=== PATIENT | female | born 1960 | race Caucasian/White ===

== ENCOUNTER 2020-01-02 08:41 | Outpatient (CLI) | payer BC, SELFPAY ==
--- NOTE | ~2020-01-02 | CT_ITS ---
EXAMINATION: CT chest wo con EXAM DATE: 01/02/2020 09:15 INDICATION: Cough. Airspace disease on recent chest x-ray. TECHNIQUE: Spiral CT of the chest without contrast. Axial, coronal and sagittal images were reviewe d. Coronal maximum intensity pixel images of chest reviewed. The dose-length product (DLP) for this examination was 141.06 mGy-cm. The exposure was tailored according to patient size (auto mA exposur e control), and iterative reconstruction (ASIR) was used as additional dose reduction technique. Comp arison is made to prior examination from 11/26/2016. Correlation was made with chest x-ray 12/16/2019. FINDINGS: There is large amount of airspace disease in the right lower lobe, causing some mass effec t, bulging the fissure, with multiple regions of low density consistent with necrosis. This is most l ikely necrotic pneumonia with significant interval progression compared to chest x-ray several weeks ago. Right lung base tree-in-bud pattern airspace disease, endobronchial spread of infection with ass ociated bronchial wall thickening, bronchitis. Smaller amount of right upper lobe pneumonia. There is biapical scarring. Moderate emphysema. Severe hyperinflation. Trace pericardial effusion. N o pleural effusions. Tracheobronchial tree is patent. Possible reactive right hilar lymphadenopath y. There is no pneumothorax. Heart normal in size. No evidence of coronary arterial calcificatio n. Upper abdomen is unremarkable. There is mild thoracic spondylosis without osteoblastic or osteo lytic lesions identified. IMPRESSION: 1. Large amount of lower lobe superior segmental centered necrotic airspace disease, most likely pne umonia but underlying cancer not excludable. Significant progression compared to chest x-ray last tue. 2. Moderate emphysema. 3. Severe hyperinflation. Reviewed, dictated and finalized at location A. RIBUTION WAREHOUSE MANAGER IMPRESSION: 1. Large amount of lower lobe superior segmental centered necrotic airspace di sease, most likely pneumonia but underlying cancer not excludable. Significant progression compared to chest x-ray last month. 2. Moderate emphysema. 3. Severe hyperinflation.
== END 2020-01-02 08:42 | disposition home or self-care (01) ==
PROVIDERS: PCP Internal Medicine; Visit Provider Physician Assistant
DX: R91.8 Other nonspecific abnormal finding of lung field (principal); J43.9 Emphysema, unspecified
CPT/HCPCS: 71250

== ENCOUNTER 2020-01-04 08:03 | Inpatient (IN) | payer BC, SELFPAY ==
[2020-01-04] VITALS (14 sets, daily range): BP systolic 101–122; BP diastolic 46–71; PULSE 98–148; RESP 16–20; TEMP 35.7–37.1; O2SAT 95–100; BMI 15.7
--- NOTE | ~2020-01-04 | XR_ITS ---
EXAMINATION: XR chest 2V DATE: 01/10/2020 10:34 INDICATION: Pneumonia. TECHNIQUE: Frontal and lateral views of the chest were obtained. COMPARISON: Chest 2 views 01/07/2020, chest CT 01/02/2020 FINDINGS: The lungs are hyperexpanded with lucencies, consistent with emphysema. There is symmetric s carring at the lung apices. There are patchy airspace opacities in the mid and lower lung zones, righ t worse than left. There is cavitation in right lower lobe with air/fluid level. There are small pleu ral effusions. No pneumothorax. The heart size is normal. IMPRESSION: 1. Airspace opacities in the mid and lower lung zones, right worse than left with worsened cavitation on the right, consistent with necrotizing pneumonia. 2. Worsened small pleural effusions. 3. Emphysema. Reviewed, dictated and finalized at location A. LEDGE MANAGEMENT CONSULTANT IMPRESSION: 1. Airspace opacities in the mid and lower lung zones, right worse than left wi th worsened cavitation on the right, consistent with necrotizing pneumonia. 2. Worsened small pleural effusions. 3. Emphysema.
--- NOTE | ~2020-01-04 | XR_ITS ---
EXAMINATION: XR barium swallow modified DATE: 01/10/2020 14:23 INDICATION: Dysphagia. Pneumonia. TECHNIQUE: The patient was given barium-containing material of multiple consistencies to swallow by t avtar speech pathologist while I performed fluoroscopy. Fluoroscopy exposure time was 2.2 minutes. The n umber of fluoroscopy images saved to the PACS was 1. Dose-area product was 1.18 Gy-cm^2. FINDINGS: The oral stage was within normal limits. There was vallecular residue contributing to laryngeal penet ration and silent aspiration. There was minimal residue in the prolonged sinus and at the pharyngeal wall. Esophageal stage was within normal limits. IMPRESSION: 1. Laryngeal penetration and silent aspiration. 2. Please refer to the speech therapy report for recommendations. Reviewed, dictated and finalized at location A. RVISOR QUILTING
--- NOTE | ~2020-01-04 | XR_ITS ---
EXAMINATION: XR chest 2V DATE: 01/07/2020 09:23 INDICATION: Pneumonia. Shortness of breath. TECHNIQUE: Frontal and lateral views of the chest were obtained. COMPARISON: Chest single view 01/04/2020 FINDINGS: There are lucencies in the lungs, consistent with emphysema. There is symmetric scarring at the lung apices. There are extensive airspace opacities in right mid and lower lung zones and left l ower lung zone with cavitation in right midlung zone. There are small pleural effusions. No pneumotho rax. The heart size is normal. IMPRESSION: 1. Worsened airspace opacities in right mid and lower lung zones and left lower lung zone with cavita tion in right midlung zone, consistent with necrotizing pneumonia. 2. New small pleural effusions. 3. Emphysema. Reviewed, dictated and finalized at location A. SWARE MAKER IMPRESSION: 1. Worsened airspace opacities in right mid and lower lung zones and left lower lung zone with cavitation in right midlung zone, consistent with necrotizing p neumonia. 2. New small pleural effusions. 3. Emphysema.
--- NOTE | ~2020-01-04 | XR_ITS ---
EXAMINATION: XR chest 1V portable DATE: 01/04/2020 09:11 INDICATION: Cough. Shortness of breath. TECHNIQUE: A single frontal view of the chest was obtained on 2 radiographs. COMPARISON: Chest 2 views 12/16/2019, chest CT 01/02/2020 FINDINGS: The lungs are hyperexpanded with lucencies and architectural distortion, consistent with em physema. There is symmetric scarring at the lung apices. There are extensive airspace opacities and n odules in right lung, worst in right lower lobe, consistent with pneumonia. No pleural effusion or pn eumothorax. The heart size is normal. IMPRESSION: 1. Severe pneumonia in right lung, worsened from 12/16/2019. 2. Emphysema. 3. Scarring at the lung apices. Reviewed, dictated and finalized at location A. NERY OPERATOR LIGHT ENDS RECOVERY
--- NOTE | 2020-01-04 08:27 | ED.DIZZY ---
HPI - Dizziness General Chief Complaint: Syncope Stated Complaint: syncope x2 today Time Seen by Provider: 01/04/20 08:18 Source: patient Mode of arrival: ambulatory Limitations: no limitations History of Present Illness HPI Narrative: Pt is a 59 y/o female who presents to the ED with c/o multiple syncopal episodes accompanied by dizziness. Per nurse, pt had multiple syncopal episodes at home and has been feeling weak. She was seen in the on 12/16/19 and was Dx with pneumonia and was Rx Levaquin. She has been following up with her PCP, Dr. Major. She reports cough with phlegm, fever, N/V for the last 3 weeks. She denies CP. MD elicited complaint: dizziness and other (syncope) Onset (ago): day(s) (today) Timing: sudden onset Associated symptoms: nausea, vomiting, fever, weakness and other (cough) Related Data Home Medications Medication Instructions Recorded Confirmed travoprost [Travatan Z] 1 drp OPHTHALMIC (EYE) HS 12/16/19 01/04/20 Allergies Allergy/AdvReac Type Severity Reaction Status Date / Time Sulfa (Sulfonamide Allergy Unknown Unknown Verified 12/16/19 10:05 Antibiotics) Review of Systems Review of Systems: All systems reviewed & are unremarkable except as noted in HPI and below Constitutional: Constitutional: Reports fever(s) Cardiovascular: Cardiovascular: Denies chest pain Respiratory: Respiratory: Reports cough and Reports excessive phlegm production Gastrointestinal: Gastrointestinal: Reports nausea and Reports vomiting Neurologic: Reports dizziness, Reports syncope and Reports weakness PMFSH Past Medical History Medical History COPD (chronic obstructive pulmonary disease) Glaucoma Surgical History Surgical History H/O: hysterectomy History of section, classical Social History Social History Smoking packs per day: 1 Smoking cigarettes per day: 20.0 Years smoked: 36 Smoking pack-years: 36.00 Smoking status: Former smoker Tobacco type: cigarettes Second hand tobacco smoke exposure: Yes Smoking end date: 12/18/19 Alcohol intake: never Substance use: never Substance use type: does not use Spiritual care concerns: No Exam Narrative: Exam Narrative: APPEARANCE: No acute distress, nontoxic, resting in bed EYES: EOMI HEENT: Normocephalic, atraumatic, oral mucosa dry RESPIRATORY: No respiratory distress coarse breath sounds to bilateral lung carvajal. Mild wheezing upper lung carvajal CARDIOVASCULAR: Tachycardic and regular without murmurs rubs or gallops. ABDOMINAL: Soft, nontender, nondistended, no rebound or guarding MUSCULOSKELETAl: Moves all extremities. No clubbing, cyanosis or edema. NEURO: Awake and alert. Following commands, speech normal, no focal deficits SKIN:: Warm, dry. No rashes lesions or abrasions PSYCHIATRIC: Normal affect/mood, Course Course Emergency Course: Discussed with patient and family results of workup and diagnosis. Discussed need for admission. Patient and family understand and agree to current treatment plan Consultations Consultation #1: Discussed case with Dr. Burden, the truckman. He recommends to gently hydrate with Nml saline 100mL/hour. Date: 01/04/20 Time: 10:07 Consultation #2: Discussed case with Dr. Pickering, the hospitalist. Accepted admission. Date: 01/04/20 Time: 11:01 Vital Signs Vital signs: Vital Signs Temperature 98.7 F 01/04/20 08:25 Pulse Rate 148 H 01/04/20 08:25 Respiratory Rate 20 01/04/20 08:25 Blood Pressure 122/71 01/04/20 08:25 Pulse Oximetry 98 01/04/20 08:25 Temperature 97.2 F L 01/04/20 14:00 Pulse Rate 98 01/04/20 14:00 Respiratory Rate 16 01/04/20 14:00 Blood Pressure 101/46 L 01/04/20 14:00 Pulse Oximetry 99 01/04/20 14:00 MDM - Dizziness Lab Data Result diagrams: 01/04/20 10:28
[2020-01-04 08:56] LABS: Alveolar/Arterial O2 Gradient 62.3 mmHg; Base Excess ABG 9.9 mEq/l (+/-2.0); Fractional Inspired Oxygen 21 %; HCO3 ABG 31.8 mEq/l (22.0-26.0); Oxygen Content ABG 16.5 %vol (16.0-22.0); Oxygen Saturation ABG 89.5 % (95.0-100.0); Oxyhemoglobin 85.7 % THb (90.0-100.0); PCO2 ABG 33.7 mmHg (35.0-45.0); PO2 FiO2 Ratio Arterial Blood 2.24 %; Total Hemoglobin 13.7 g/dL (12.0-18.0)
[2020-01-04 08:58] LABS: Device ROOM AIR; PO2 ABG 47.1 mmHg (80.0-100.0); Site Drawn LEFT BRACHIAL; pH ABG 7.592 (7.350-7.450)
--- NOTE | 2020-01-04 09:09 | PC.NURSE ---
lab contacted due to multiple unsuccessful blood attempts
[2020-01-04] MEDS: LACTATED RINGERS 1,000 ML 999 ML IV CONT (09:15)
[2020-01-04 09:36] LABS: Alanine Aminotransferase 21 U/L (4-35); Albumin Level 2.8 g/dL (3.5-5.1); Alkaline Phosphatase 132 U/L (38-126); Aspartate Amino Transferase 33 U/L (14-36); Bilirubin,Total 0.9 mg/dL (0.2-1.3); Blood Urea Nitrogen 26 mg/dL (7-17); Calcium 7.7 mg/dL (8.4-10.2); Carbon Dioxide 29 mmol/L (22-30); Chloride 74 mmol/L (98-107); Estimated CRCL calculation 60 ml/min; Estimated Glomerular Filt Rate > 60; Glucose 158 mg/dL (65-105); Potassium 3.6 mmol/L (3.4-5.0); Sodium 119 mmol/L (137-145)
[2020-01-04 09:47] LABS: Troponin I < 0.012 ng/mL (0.000-0.034)
[2020-01-04 10:37] LABS: Hematocrit 33.1 % (37.0-47.0); Hemoglobin 11.4 g/dL (12.0-15.0); Mean Corpuscular HGB Conc 34.4 g/dl (32-36); Mean Corpuscular Hemoglobin 30.5 pg (26-34); Mean Corpuscular Volume 88.5 fl (80-100); Mean Platelet Volume 9.3 fl (7.4-10.4); Platelet Count Result 320 k/mm3 (150-375); Red Blood Count 3.74 M/mm3 (4.2-5.4); Red Cell Distribution Width 12.8 % (11.5-14.5); White Blood Count 20.6 K/mm3 (4.5-10.0)
[2020-01-04 10:46] LABS: INR 1.5; Prothrombin Time 17.8 Seconds (11.1-14.7)
[2020-01-04 10:47] LABS: Lactic Acid Reflex 3.2 mmol/L (0.7-2.1); Partial Thromboplastin Time 28.6 SECONDS (22.3-36.8)
[2020-01-04 10:55] LABS: Band Neutrophils Percent 5 % (0-6); Lymphocytes Absolute Manual 0.61 K/mm3 (1.1-4.5); Monocytes Absolute Manual 1.03 K/mm3 (0.1-0.90); Monocytes Percent Manual 5 % (3-9); Neutrophils Absolute Manual 18.95 K/mm3 (1.7-7.2); Neutrophils Percent Manual 87 % (46-73); Platelet Estimate Adequate (Adequate); Total Cells Counted 100
[2020-01-04] MEDS: SODIUM CHLORIDE 0.9% IV 1,000 ML 100 ML IV CONT (12:11)
--- NOTE | 2020-01-04 13:30 | PM.IMHP ---
H&P: HPI History of Present Illness Chief complaint: Weakness, pneumonia. Narrative: Ann Augustin is a 59 year old female, former heavy smoker, who purportedly quit 3 weeks ago however she admits to ?sneaking a cigarette here and there? with obstructive sleep apnea on CPAP and COPD/emphysema who presented to the emergency department earlier this morning via private vehicle from home for evaluation of weakness and pneumonia. She is a fair historian and from what I can gather, she developed cold symptoms around the beginning of the new year including chills, sweats, fever up to 101?, cough productive of clear to rocha sputum, sinus congestion, and mild sore throat as well as right lower chest pleuritic pain. Despite [id number] medications including Robitussin, ibuprofen, and aspirin, she continued to have symptoms and was seen at a local urgent care on December 16. She was diagnosed with right-sided pneumonia for which she was prescribed Levaquin. She completed the Levaquin, but did not feel much better and was seen at her primary care provider's office December 21, 2019 for follow-up. She was referred for a chest CT, as her chest x-ray done at urgent care showed a questionable mass near the area of pneumonia. She did not have the CT performed until January 02 and the image was read as having a large amount of right lower lobe superior segmental centered necrotic airspace disease, most likely pneumonia but underlying cancer not excludable. Moderate emphysema and severe hyperinflation noted as well. She was given a referral to see pulmonology, but to my knowledge has yet to make an appointment. In any event, she has continued to feel poorly with the above symptoms, however her fever has resolved. Her appetite has been decreased due to not being hungry; she denies nausea and vomiting. She has been trying to stay hydrated, and she estimates drinking between 48 - 64 ounces of water each day. Despite that, she has become progressively more weak with episodes of lightheadedness/dizziness upon standing. Ann tells me that this morning when she got up she had a near syncopal episode causing her to fall back into bed. She has also been feeling a bit confused, worse this morning. It is noted that she told the emergency department physician that she had several syncopal episodes today with the dizziness, but denied that to me when questioned. Currently she complains of slight shortness of breath, which has been ongoing. She has not had a fever for about a week. No headache or neck ache. No rash. No chest pain. She denies lower extremity edema. No orthopnea or PND. She does admit that she has been intermittently compliant with CPAP since being ill, due to coughing frequently. She denies nausea and vomiting. No diarrhea. Review of Systems Review of Systems: Narrative: Twelve systems were reviewed with pertinent positives and negatives as per HPI. She has progressively lost some weight over the years, and thinks she probably has lost more and the past month since being ill. She denies recent travel and sick contacts. No arthralgias or myalgias. She denies exertional chest pain. At baseline she will get short of breath when walking up a flight of stairs or while grocery shopping for long periods of time. Other than that, she has reportedly not limited by her COPD. She had been on inhalers previously but stopped taking them as they caused her heart to race. Except as documented, all other systems were reviewed and are negative. [facility] Past Medical History Medical History COPD with emphysema PFTs in July 2017 demonstrated mild obstructive ventilatory defect, particularly in small airways with no acute bronchodilator response and moderately decreased DLCO. Glaucoma Obstructive sleep apnea on CPAP Sleep study in June 2017 demonstrated severe obstructive sleep apnea. Osteoarthritis Osteoporosis Tobacco
[2020-01-04 13:34] LABS: Reflex Lactic Acid Yes or No Add Lactic
[2020-01-04 14:08] LABS: Lactic Acid 3.5 mmol/L (0.7-2.1)
[2020-01-04 14:09] LABS: Blood Urea Nitrogen 22 mg/dL (7-17); Calcium 7.3 mg/dL (8.4-10.2); Carbon Dioxide 32 mmol/L (22-30); Chloride 74 mmol/L (98-107); Estimated CRCL calculation 50 ml/min; Estimated Glomerular Filt Rate > 60; Glucose 213 mg/dL (65-105); Magnesium 2.1 mg/dL (1.6-2.3); Phosphorus 3.1 mg/dL (2.5-4.5); Sodium 121 mmol/L (137-145)
[2020-01-04] MEDS: ALBUTEROL SULFATE NEB 2.5 MG/0.5 ML INH 5 MG INHALATION ×2 (15:58→20:20)
[2020-01-04] MEDS: IPRATROPIUM BR 0.02% INH SOLN 0.5 MG/2.5 ML VIAL INHALATION ×2 (15:58→20:20)
--- NOTE | 2020-01-04 16:46 | ECG_ITS ---
Measurements Intervals [place] Rate: 148 P: 86 MN: 112 QRS: 86 QRSD: 94 T: 65 QT: 270 QTc: 424 Interpretive Statements SINUS TACHYCARDIA INCOMPLETE RIGHT BUNDLE BRANCH BLOCK BORDERLINE ST ABNORMALITY- INFERIOR LEADS ABNORMAL ECG Electronically Signed On 01-04-2020 16:51:17 LOSS PREVENTION AGENT by Vinicio King D.O.
--- NOTE | 2020-01-04 16:51 | PM.CNNEP ---
Assessment and Plan Assessment and plan (1) Hyponatremia: Code(s): E87.1 - Hypo-osmolality and hyponatremia Status: Acute Assessment and Plan: the patient has hyponatremia. her exam shows that she is at most euvolemic, maybe dehydrated. she hasn't been eating very much she says. so she could have hypovolemic hyponatremia. she has been getting some sliine. we can repeat the sodium to see if it is getting better. we will get a urine sodium as well. she is not on any meds that would do this. she could have siadh from several causes. she has pneumonia and it is somewhat impressive. the has been sick for a couple of weeks at least so could have lung related hyponatremia. she has a heavy smoking history so could have cancer somewhere, possibly hidden in the pneumnoia. she could have cancer related hyponatremia. Other causes include SECURITIES SALES ASSOCIATE related hyponatremia. if nothing else comes up consider a ct or mri of the brain. hypothyroidism or addisons could affect the sodium as well. will get TSH and cortisol levels. (2) Obstructive sleep apnea on CPAP: Code(s): G47.33 - Obstructive sleep apnea (adult) (pediatric); Z99.89 - Dependence on other enabling machines and devices Status: Acute Assessment and Plan: uses the cpap machine (3) Pneumonia involving right lung: Code(s): J18.9 - Pneumonia, unspecified organism Status: Acute Assessment and Plan: she is on antibiotics and supportive care. History of Present Illness Reason for Consult Consult date: 01/05/20 Chief Complaint Chief complaint: Weakness, pneumonia. History of Present Illness Narrative: Ann is a very pleasant 59yo lady with copd, jairo, with a heavy smoking history. she was well until about 3 weeks ago when she developed fever and a cough. she went to urgent care and deisy diagnosed her with pneumonia and gave her levaquin. she then went to her pcp on 12/21 and was told to finish the levaquin. over the last few days she has become worse with cough, fever, sob, and weakness. she came to the er at [place] and had cxr which showed worsened pneumonia. Ct was done showing the pneumonia as well. no lung mass (suspected because of the smoking history and nonresolution of the pneumnoia.) she was noted to have a low sodium so renal consultation was requested. she is on no narcotick, antidepressents, or diuretics. she is on no oral meds at all. she had no diarrhea, nausea, or vomiting. she hasn't eaten very nuch and has been drinking lots of fluid. she smokes 2 ppd but quit 3 weeks ago. she drinks occasionally. Review of Systems Constitutional: Constitutional: Reports no additional constitutional complaints Eyes: Eyes: Reports no additional eye complaints ENT: Reports system reviewed and no additional complaints, except as documented Cardiovascular: Cardiovascular: Reports no additional cardiovascular complaints Respiratory: Respiratory: Reports no additional respiratory complaints Gastrointestinal: Gastrointestinal: Reports no additional gastrointestinal complaints Genitourinary: Genitourinary: Reports no additional female genitourinary complaints Musculoskeletal: Musculoskeletal: Reports no additional musculoskeletal complaints Integumentary/Breasts: Skin/Breast: Reports system reviewed and no additional complaints, except as docu Neurologic: Reports system reviewed and no additional complaints, except as documented Psychiatric: Psychiatric: Reports no additional psychiatric complaints PMFSH Past Medical History Medical History COPD with emphysema PFTs in July 2017 demonstrated mild obstructive ventilatory defect, particularly in small airways with no acute bronchodilator response and moderately decreased DLCO. Glaucoma Obstructive sleep apnea on CPAP Sleep study in June 2017 demonstrated severe obstructive sleep apnea. Osteoarthritis Osteo
[2020-01-04] MEDS: POTASSIUM CHLORIDE 20 MEQ TABLET 40 MEQ PO (17:33)
[2020-01-04 18:01] LABS: Sodium 121 mmol/L (137-145)
[2020-01-04 18:51] LABS: Add Urine Microscopic? YES; Appearance Urine Clear (Clear); Bacteria Urine Trace /hpf; Bilirubin Urine Negative (Negative); Blood Urine 1+ (Negative); Color Urine Yellow (Yellow); Glucose Urine UA Negative (Negative); Ketones Urine Negative (Negative); Leukocyte Esterase Ur Negative LEU/UL (Negative); Mucus Urine Rare /lpf; Nitrate Urine Negative (Negative); Protein Urine Negative (Negative); RBC Urine 0-2 /hpf (0-2); Squamous Epithelial Cell Urine Moderate /hpf (Few); Urobilinogen Urine Negative mg/dL (<2.0); WBC Urine 0-3 /hpf
[2020-01-04 18:53] LABS: Creatinine Urine 50.1 mg/dL
[2020-01-04 19:20] LABS: Sodium Urine Random < 5 meq/L
[2020-01-04] MEDS: LATANOPROST 0.005% OP SOLN 2.5 ML BTL 1 DROP EACH EYE (20:12)
[2020-01-04 20:42] LABS: Sodium 123 mmol/L (137-145)
[2020-01-04 20:46] LABS: Lactic Acid 2.1 mmol/L (0.7-2.1)
[2020-01-04 21:24] LABS: Sodium Urine Random < 5 meq/L
[2020-01-04 23:12] LABS: Sodium 123 mmol/L (137-145)
[2020-01-04] MEDS: SODIUM CHLORIDE 0.9% IV 1,000 ML 75 ML IV CONT (23:49)
[2020-01-05] VITALS (22 sets, daily range): BP systolic 103–141; BP diastolic 52–68; PULSE 88–112; RESP 16–22; TEMP 36.4–36.7; O2SAT 93–98
[2020-01-05 02:16] LABS: Sodium 124 mmol/L (137-145)
[2020-01-05] MEDS: IPRATROPIUM BR 0.02% INH SOLN 0.5 MG/2.5 ML VIAL INHALATION ×4 (02:16→22:57)
[2020-01-05] MEDS: ALBUTEROL SULFATE NEB 2.5 MG/0.5 ML INH 5 MG INHALATION ×4 (02:16→22:58)
[2020-01-05 05:33] LABS: Basophils Percent Auto 0.2 % (0.2-1.2); Eosinophils Percent Auto 0.2 % (0-4.4); Hematocrit 29.7 % (37.0-47.0); Hemoglobin 10.3 g/dL (12.0-15.0); Immature Granulocyte Absolute 0.19 K/mm3 (0.00-0.031); Immature Granulocyte Percent A 1.1 % (0-0.5); Lymphocytes Absolute Auto 1.95 K/mm3 (0.9-3.2); Lymphocytes Percent Auto 11.5 % (18.3-44.2); Mean Corpuscular HGB Conc 34.7 g/dl (32-36); Mean Corpuscular Hemoglobin 30.8 pg (26-34); Mean Corpuscular Volume 88.9 fl (80-100); Mean Platelet Volume 8.9 fl (7.4-10.4); Monocytes Absolute Auto 1.6 K/mm3 (0.1-0.6); Monocytes Percent Auto 9.1 % (2.6-8.5); Neutrophils Absolute Auto 13.2 K/mm3 (1.3-6.7); Neutrophils Percent Auto 77.9 % (45.5-73.1); Platelet Count Result 342 k/mm3 (150-375); Red Blood Count 3.34 M/mm3 (4.2-5.4); Red Cell Distribution Width 13.2 % (11.5-14.5)
[2020-01-05 06:00] LABS: Blood Urea Nitrogen 16 mg/dL (7-17); Calcium 7.4 mg/dL (8.4-10.2); Carbon Dioxide 32 mmol/L (22-30); Chloride 83 mmol/L (98-107); Estimated CRCL calculation 82 ml/min; Estimated Glomerular Filt Rate > 60; Glucose 105 mg/dL (65-105); Potassium 3.4 mmol/L (3.4-5.0); Sodium 125 mmol/L (137-145)
[2020-01-05 08:37] LABS: Sodium 126 mmol/L (137-145)
--- NOTE | 2020-01-05 10:53 | PM.PNNEP ---
Progress Note: A&P Assessment and Plan (1) Hyponatremia: Code(s): E87.1 - Hypo-osmolality and hyponatremia Status: Acute Assessment and Plan: sodium is slowly improving suspect multifactorial etiology: - mild volume depletion (low urine sodium) - possible SIADH -- COPD -- severe pneumonia -- significant smoking history -- possible malignancy?? TSH okay follow-up on pending tests follow trend of sodium - improving with fluid restriction and normal saline (2) Pneumonia involving right lung: Code(s): J18.9 - Pneumonia, unspecified organism Status: Acute Assessment and Plan: on antibiotics continue supportive care Will continue to follow. Subjective Date/time seen: 01/05/20 10:53 Appears to be doing reasonably well at the time of my visit; reports improvement in her shortness of breath as well as chest congestion; appetite is doing better and productive cough has decreased. Exam Narrative: Exam Narrative: General: WD/WN female in NAD Heart: normal S1 and S2; no rub Lungs: clear with some decreased breath sounds at bases Abdomen: soft, nontender, nondistended, positive bowel sounds Extremities: no cyanosis or clubbing; no edema Skin: warm and dry Objective Data Vital Signs Vital Signs: Vital Signs Temp Pulse Resp BP Pulse Ox 01/05/20 10:12 104 H 20 01/05/20 10:02 96 01/05/20 10:01 100 20 01/05/20 08:02 103/61 01/05/20 08:01 114/54 L 01/05/20 08:00 108 H 127/54 L 01/05/20 06:00 36.4 C L 98 16 104/59 L 96 01/05/20 04:00 101 H 01/05/20 02:22 103 H 18 01/05/20 02:16 106 H 18 01/05/20 00:00 107 H 01/04/20 22:00 36.6 C 109 H 18 102/54 L 97 01/04/20 20:34 101 H 18 01/04/20 20:24 102 H 95 01/04/20 20:20 102 H 18 01/04/20 20:00 104 H 01/04/20 16:07 99 18 01/04/20 16:00 99 01/04/20 15:59 100 18 01/04/20 14:00 36.2 C L 98 16 101/46 L 99 01/04/20 12:19 35.7 C L 102 H 18 115/55 L 100 01/04/20 12:00 103 H 01/04/20 11:41 107 H 18 108/59 L 98 01/04/20 10:55 105 H 18 111/53 L 100 Intake/Output Intake/Output: Intake & Output 01/02/20 01/03/20 01/04/20 01/05/20 23:59 23:59 23:59 23:59 Intake Total 2650 1179 Output Total 200 650 Balance 2450 529 Meds/Results Medications: Active Medications Generic Name Dose Route Start Last Admin Trade Name Freq PRN Reason Stop Dose Admin Albuterol 5 mg 01/04/20 14:00 01/05/20 09:59 Albuterol Sulf Neb 2.5mg/0.5ml INHALATION 5 mg Q6HRT SOTO Administration Guaifenesin 600 mg 01/04/20 21:00 01/05/20 08:13 Mucinex 12 Hr Tab PO 600 mg Q12HR SOTO Administration Ceftriaxone Sodium/Dextrose 1 gm in 50 mls @ 100 mls/hr 01/05/20 11:00 Rocephin 1 Gm/D5w 50 Ml IVPB DAILY@1100 SOTO Sodium Chloride 1,000 mls @ 75 mls/hr 01/04/20 11:05 01/05/20 08:13 Normal Saline Iv IV CONT 75 mls/hr .[id number] SOTO Infusion Azithromycin 500 mg in 250 mls @ 250 mls/hr 01/04/20 12:00 01/04/20 12:11 Zithromax IVPB 250 mls/hr DAILY@NOON SOTO Administration Ipratropium [place] 0.5 mg 01/04/20 14:00 01/05/20 09:59 Atrovent Neb INHALATION 0.5 mg Q6HRT SOTO Administration Latanoprost 1 drop 01/04/20 21:00 01/04/20 20:12 Xalatan EACH EYE 1 drop HS SOTO Administration Radiology Results: ITS Impressions Chest X-Ray 01/04/20 09:12 IMPRESSION: 1. Severe pneumonia in right lung, worsened from 12/16/2019. 2. Emphysema. 3. Scarring at the lung apices. Labs Labs: Laboratory Tests 01/05/20 05:07 01/05/20 08:23 Microbiology 01/04/20 16:40 Sputum Sputum Culture - Preliminary
[2020-01-05 11:17] LABS: Sodium 124 mmol/L (137-145)
[2020-01-05] MEDS: SODIUM CHLORIDE 0.9% IV 1,000 ML 75 ML IV CONT ×2 (11:56→22:39)
[2020-01-05 14:14] LABS: Sodium 125 mmol/L (137-145)
--- NOTE | 2020-01-05 17:55 | PM.CNPUL ---
Assessment and Plan Assessment and plan (1) Pneumonia involving right lung: Code(s): J18.9 - Pneumonia, unspecified organism Status: Acute Assessment and Plan: She has a large right sided pneumonia that has worsened over the last month, Dec 16; with worrisome findings including low Na+, high WBC, hypoxemia, failure to respond to Levaquin x 10 days; she has had fever, weight loss; she is cachectic. Will change to Unasyn, check sputum for fungal and AFB pathogens, see if she responds. She may require bronchoscopy to assure that she does not have anything obstructing the airway. She denies having vomiting, however with low low Na+ she easily could have vomited and aspirated. Urine antigens are pending. This large infiltrate will take several days to improve, and may require surgical approach. She had an area of abnormality in her CXR in 2016; has also had abnormal liver lesion in 2011, with discussion about having a biopsy of a liver and /or spleen lesion with concern for lymphoma. PLAN: Unasyn; sputum for fungal and AFB smear and culture, wean O2, follow CXR, possible bronch or transfer out if she needs thoracic intervention. (2) COPD with emphysema: Code(s): J43.9 - Emphysema, unspecified Status: Acute Assessment and Plan: Was smoking untl a few weeks ago. She has PFTs from 2017 that confirm this, and is not on any controller med. Symbicort added, and she can continue bronchodilator therapy. (3) Tobacco abuse: Code(s): Z72.0 - Tobacco use Status: Acute Assessment and Plan: Smoked 1 ppd sometimes 2 ppd, none for almost a month; no longer smoking marijuana (4) Protein calorie malnutrition: Code(s): E46 - Unspecified protein-calorie malnutrition Status: Acute Assessment and Plan: Gradual weight loss with other symptoms is concerning for malignancy. (5) Acute hyponatremia: Code(s): E87.1 - Hypo-osmolality and hyponatremia Status: Acute Assessment and Plan: Was 119, improved, now 125. She is hypochloremic. Her electrolytes are being managed by Dr. Armstrong. I agree with his comments about possible cancer under the infiltrate as a cause for her Na+. Her CXR has not been normal for a while, (6) Acute hypoxemic respiratory failure: Code(s): J96.01 - Acute respiratory failure with hypoxia Status: Acute Assessment and Plan: Due to infiltrate, on nasal cannula O2 with improved saturation; Will continue to wean, and may need Home O2 evaluation before discharge. (7) Obstructive sleep apnea on CPAP: Code(s): G47.33 - Obstructive sleep apnea (adult) (pediatric); Z99.89 - Dependence on other enabling machines and devices Status: Acute Assessment and Plan: This is per history. I did not explore this with her as her pneumonia is the most pressing problem. History of Present Illness History of Present Illness Consult date: 01/05/20 Requesting physician: Rema Camarillo PA-C Reason for consult: pneumonia Chief complaint: Weakness, pneumonia. Narrative: NEW CONSULT: Ream Camarillo PA-C consulted me to see this 59 yo female for severe pneumonia. She is a heavy smoker, up to 2 ppd, mostly 1 ppd, has COPD but has not been on inhalers due to increased heart rate while using them. She cannot recall the name of any. She says that she stopped smoking in November due to shortness of breath as well as development of pneumonia. She has not smoked marijuana lately, either. She has a cough w
--- NOTE | 2020-01-05 18:28 | P.PNIM_ITS ---
Progress Note: A&P Assessment and Plan (1) Sepsis: Code(s): A41.9 - Sepsis, unspecified organism Status: Acute Assessment and Plan: * Present on admission and supported by tachycardia, leukocytosis, and elevated lactic acid level in the setting of pneumonia. * Lactic acid on arrival was 3.2, then went to 3.5 and then normalized this morning. * Blood cultures have been obtained and are pending. (2) Pneumonia involving right lung: Code(s): J18.9 - Pneumonia, unspecified organism Status: Acute Assessment and Plan: * She has been feeling unwell for approximately 1 month, and despite outpatient Levaquin her pneumonia has continued to progress. * Questionable right lower lobe mass, but difficult to tell given the consolidation. * Continue on azithromycin and ceftriaxone. * May consider adding vancomycin for possible post viral pneumonia. * Nebulizers scheduled q.6 hours. * Mucinex and Cornet to help mobilize secretions. * I will ask Dr. Mendoza to see her in consult. (3) Hyponatremia: Code(s): E87.1 - Hypo-osmolality and hyponatremia Status: Acute Assessment and Plan: * Hyponatremia is severe and was 119 on initial presentation, today sodium was slightly improved at 125. * Etiology is not entirely clear, but likely multifactorial to include decreased oral intake and possible SIADH from pulmonary disease and pneumonia. * She was given IV fluid rehydration for her sepsis. * TSH was normal. * Urine Sodium was <5 showing severe dehydration and FENa was 0%. * Urine osmolalities are peding. * Nephrology was consulted on the patient and their input is greatly appreciated. (4) COPD with emphysema: Code(s): J43.9 - Emphysema, unspecified Status: Acute Assessment and Plan: * No evidence of acute exacerbation at this time. * She will need to follow-up with Dr. Mendoza as an outpatient to maximize her therapy. * At this point she is not using any inhalers at home. (5) Obstructive sleep apnea on CPAP: Code(s): G47.33 - Obstructive sleep apnea (adult) (pediatric); Z99.89 - Dependence on other enabling machines and devices Status: Acute Assessment and Plan: * CPAP ordered for naps and at nighttime. * I stressed compliance with this. (6) Tobacco abuse: Code(s): Z72.0 - Tobacco use Status: Acute Assessment and Plan: * Patient reports that she quit smoking 3 weeks ago, but has been sneaking cigarettes here and there. * She declines the need for nicotine patch at this time. (7) Protein calorie malnutrition: Code(s): E46 - Unspecified protein-calorie malnutrition Status: Acute Assessment and Plan: * Dietitian recommendations appreciated. (8) Near syncope: Code(s): R55 - Syncope and collapse Status: Acute Assessment and Plan: * Patient gives conflicting history is and thus it is hard to differentiate whether not she had a syncopal episode or near syncope today. * She is obviously quite weak and frail due to her pneumonia. * Pulmonary embolism considered but felt to be less likely by history. * Her orthostatics were positive. * Will order Og Hose, IV fluids for dehydration and montoring her symptoms. * Check orthostatic vital signs and monitor on telemetry. Time Spent With Patient Time with patient: 25 - 35 minutes Subjective Date/time seen: 01/05/20 18:28 Interval history: Date of Service 01/05/2020
--- NOTE | 2020-01-05 18:28 | PM.IMPN ---
Progress Note: A&P Assessment and Plan (1) Sepsis: Code(s): A41.9 - Sepsis, unspecified organism Status: Acute Assessment and Plan: Present on admission and supported by tachycardia, leukocytosis, and elevated lactic acid level in the setting of pneumonia. Lactic acid on arrival was 3.2, then went to 3.5 and then normalized this morning. Blood cultures have been obtained and are pending. (2) Pneumonia involving right lung: Code(s): J18.9 - Pneumonia, unspecified organism Status: Acute Assessment and Plan: She has been feeling unwell for approximately 1 month, and despite outpatient Levaquin her pneumonia has continued to progress. Questionable right lower lobe mass, but difficult to tell given the consolidation. Continue on azithromycin and ceftriaxone. May consider adding vancomycin for possible post viral pneumonia. Nebulizers scheduled q.6 hours. Mucinex and Cornet to help mobilize secretions. I will ask Dr. Mendoza to see her in consult. (3) Hyponatremia: Code(s): E87.1 - Hypo-osmolality and hyponatremia Status: Acute Assessment and Plan: Hyponatremia is severe and was 119 on initial presentation, today sodium was slightly improved at 125. Etiology is not entirely clear, but likely multifactorial to include decreased oral intake and possible SIADH from pulmonary disease and pneumonia. She was given IV fluid rehydration for her sepsis. TSH was normal. Urine Sodium was <5 showing severe dehydration and FENa was 0%. Urine osmolalities are peding. Nephrology was consulted on the patient and their input is greatly appreciated. (4) COPD with emphysema: Code(s): J43.9 - Emphysema, unspecified Status: Acute Assessment and Plan: No evidence of acute exacerbation at this time. She will need to follow-up with Dr. Mendoza as an outpatient to maximize her therapy. At this point she is not using any inhalers at home. (5) Obstructive sleep apnea on CPAP: Code(s): G47.33 - Obstructive sleep apnea (adult) (pediatric); Z99.89 - Dependence on other enabling machines and devices Status: Acute Assessment and Plan: CPAP ordered for naps and at nighttime. I stressed compliance with this. (6) Tobacco abuse: Code(s): Z72.0 - Tobacco use Status: Acute Assessment and Plan: Patient reports that she quit smoking 3 weeks ago, but has been sneaking cigarettes here and there. She declines the need for nicotine patch at this time. (7) Protein calorie malnutrition: Code(s): E46 - Unspecified protein-calorie malnutrition Status: Acute Assessment and Plan: Dietitian recommendations appreciated. (8) Near syncope: Code(s): R55 - Syncope and collapse Status: Acute Assessment and Plan: Patient gives conflicting history is and thus it is hard to differentiate whether not she had a syncopal episode or near syncope today. She is obviously quite weak and frail due to her pneumonia. Pulmonary embolism considered but felt to be less likely by history. Her orthostatics were positive. Will order Og Hose, IV fluids for dehydration and montoring her symptoms. Check orthostatic vital signs and monitor on telemetry. Time Spent With Patient Time with patient: 25 - 35 minutes Subjective Date/time seen: 01/05/20 18:28 Interval history: Date of Service 01/05/2020: She reports feeling better today. She reports continued chest congestion and little sputum production. She reports improved shortness of breath. She is currently still on 1L via NC but reports improved dyspnea on exertion and with rest. She denies anymore fever or chills. She has been eating well today and has more energy. She denies chest pain, nausea, vomiting, abdominal pain, diarrhea, constipation, leg swelling, calf pain or any other symptoms at this time. Review of Systems Review of S
[2020-01-05] MEDS: LATANOPROST 0.005% OP SOLN 2.5 ML BTL 1 DROP EACH EYE (20:06)
[2020-01-05] MEDS: AMPICILLIN SULB 3 GM/NS 100 ML 3 GM/100 ML VIAL IVPB (22:38)
[2020-01-06] VITALS (21 sets, daily range): BP systolic 111–153; BP diastolic 59–66; PULSE 78–126; RESP 16–24; TEMP 36.7–36.9; O2SAT 89–99
[2020-01-06] MEDS: IPRATROPIUM BR 0.02% INH SOLN 0.5 MG/2.5 ML VIAL INHALATION ×4 (03:29→21:27)
[2020-01-06] MEDS: ALBUTEROL SULFATE NEB 2.5 MG/0.5 ML INH 5 MG INHALATION ×2 (03:29→08:53)
[2020-01-06 05:38] LABS: Basophils Percent Auto 0.3 % (0.2-1.2); Eosinophils Absolute Auto 0.1 K/mm3 (0-0.3); Eosinophils Percent Auto 0.4 % (0-4.4); Hematocrit 28.4 % (37.0-47.0); Hemoglobin 9.5 g/dL (12.0-15.0); Immature Granulocyte Percent A 1.6 % (0-0.5); Lymphocytes Absolute Auto 1.52 K/mm3 (0.9-3.2); Mean Corpuscular HGB Conc 33.5 g/dl (32-36); Mean Corpuscular Hemoglobin 30.1 pg (26-34); Mean Corpuscular Volume 89.9 fl (80-100); Mean Platelet Volume 8.6 fl (7.4-10.4); Monocytes Absolute Auto 1.4 K/mm3 (0.1-0.6); Monocytes Percent Auto 11.1 % (2.6-8.5); Neutrophils Absolute Auto 9.5 K/mm3 (1.3-6.7); Neutrophils Percent Auto 74.6 % (45.5-73.1); Platelet Count Result 322 k/mm3 (150-375); Red Blood Count 3.16 M/mm3 (4.2-5.4); Red Cell Distribution Width 13.2 % (11.5-14.5); White Blood Count 12.7 K/mm3 (4.5-10.0)
[2020-01-06] MEDS: AMPICILLIN SULB 3 GM/NS 100 ML 3 GM/100 ML VIAL IVPB ×3 (06:22→17:42)
[2020-01-06 06:28] LABS: Blood Urea Nitrogen 9 mg/dL (7-17); Calcium 7.2 mg/dL (8.4-10.2); Carbon Dioxide 30 mmol/L (22-30); Chloride 90 mmol/L (98-107); Estimated CRCL calculation 105 ml/min; Estimated Glomerular Filt Rate > 60; Glucose 104 mg/dL (65-105); Potassium 2.8 mmol/L (3.4-5.0); Sodium 129 mmol/L (137-145)
[2020-01-06] MEDS: POTASSIUM CHLORIDE 20 MEQ TABLET 40 MEQ PO (07:55)
[2020-01-06] MEDS: SODIUM CHLORIDE 0.9% IV 1,000 ML 75 ML IV CONT (11:50)
[2020-01-06 14:58] LABS: Magnesium 1.8 mg/dL (1.6-2.3); Potassium 3.8 mmol/L (3.4-5.0)
--- NOTE | 2020-01-06 15:03 | PM.PNNEP ---
Progress Note: A&P Assessment and Plan (1) Hyponatremia: Code(s): E87.1 - Hypo-osmolality and hyponatremia Status: Acute Assessment and Plan: sodium is slowly improving suspect multifactorial etiology: - mild volume depletion (low urine sodium) - possible SIADH -- COPD -- severe pneumonia -- significant smoking history -- possible malignancy(?) but seems less likely TSH okay follow-up on pending tests follow trend of sodium - improving with fluid restriction and normal saline (2) Pneumonia involving right lung: Code(s): J18.9 - Pneumonia, unspecified organism Status: Acute Assessment and Plan: on antibiotics continue supportive care Not much else to add -- will continue to follow intermittently with regard to her sodium level. Subjective Date/time seen: 01/06/20 15:03 Continue to make slow and steady improvement each day with regard to her breathing/respiratory status; no new issues or problems to report at this time. Exam Narrative: Exam Narrative: General: WD/WN female in NAD Heart: normal S1 and S2; no rub Lungs: clear with some decreased breath sounds at bases Abdomen: soft, nontender, nondistended, positive bowel sounds Extremities: no cyanosis or clubbing; no edema Skin: warm and intact Objective Data Vital Signs Vital Signs: Vital Signs Temp Pulse Resp BP Pulse Ox 01/06/20 14:24 120 H 20 01/06/20 14:16 113 H 24 H 89 L 01/06/20 14:00 36.9 C 118 H 18 127/60 99 01/06/20 12:00 117 H 01/06/20 09:05 119 H 20 01/06/20 08:54 115 H 20 93 01/06/20 08:02 135/66 01/06/20 08:01 123/59 L 01/06/20 08:00 119 H 153/63 H 01/06/20 06:00 36.7 C 109 H 16 125/63 95 01/06/20 05:52 94 01/06/20 04:00 111 H 01/06/20 03:31 78 20 01/06/20 00:00 113 H 01/05/20 23:05 92 20 01/05/20 22:58 88 20 01/05/20 21:29 36.5 C 92 20 141/67 H 93 01/05/20 21:25 114/68 01/05/20 20:00 36.5 C 110 H 20 141/67 H 93 01/05/20 16:00 112 H 01/05/20 15:16 98 20 01/05/20 15:05 100 20 Intake/Output Intake/Output: Intake & Output 01/03/20 01/04/20 01/05/20 01/06/20 23:59 23:59 23:59 23:59 Intake Total 2900 3360 2000 Output Total 200 2000 950 Balance 2700 1360 1050 Meds/Results Medications: Active Medications Generic Name Dose Route Start Last Admin Trade Name Freq PRN Reason Stop Dose Admin Budesonide/Formoterol Fumarate 2 puff 01/06/20 08:00 01/06/20 09:05 Symbicort 160-4.5 Mcg (*Sp) Inhaler INHALATION 2 puff Q12HRT SOTO Administration Guaifenesin 600 mg 01/04/20 21:00 01/06/20 07:55 Mucinex 12 Hr Tab PO 600 mg Q12HR SOTO Administration Sodium Chloride 1,000 mls @ 75 mls/hr 01/04/20 11:05 01/06/20 11:50 Normal Saline Iv IV CONT 75 mls/hr .[id number] SOTO Administration Ampicillin Sodium/Sulbactam Sodium 3 gm in 100 mls @ 200 mls/hr 01/05/20 23:00 01/06/20 12:18 Unasyn 3 Gm/Ns 100 Ml IVPB Infused Q6HR SOTO Infusion Ipratropium [place] 0.5 mg 01/04/20 14:00 01/06/20 14:14 Atrovent Neb INHALATION 0.5 mg Q6HRT SOTO Administration Latanoprost 1 drop 01/04/20 21:00 01/05/20 20:06 Xalatan EACH EYE 1 drop HS SOTO Administration Levalbuterol HCl 1.25 mg 01/06/20 14:00 01/06/20 14:14 Xopenex 1.25 Mg/0.5 Ml INHALATION 1.25 mg Q6HRT SOTO Administration Nystatin 5 ml 01/06/20 17:00 Nystatin 100,000 Units/Ml Susp PO QID SOTO Radiology Results: ITS Impressions Chest X-Ray 01/04/20 09:12 IMPRESSION: 1. Severe pneumonia in right lung, worsened from 12/16/2019. 2. Emphysema. 3. Scarring at the lung apices. Labs Labs: Laboratory Tests 01/06/20 04:57 01/06/20 14:36 Microbiology 01/04/20 16:40 Sputum Sputum Culture - Preliminary 01/04/20 09:08 Blood Blood Culture - Preliminary 01/04/20 10:28 Blood Bloo
--- NOTE | 2020-01-06 17:30 | PM.IMPN ---
Progress Note: A&P Assessment and Plan (1) Sepsis: Code(s): A41.9 - Sepsis, unspecified organism Status: Acute Assessment and Plan: Present on admission and supported by tachycardia, leukocytosis, and elevated lactic acid level in the setting of pneumonia. Lactic acid on arrival was 3.2, then went to 3.5 and then normalized. Today the patient's vitals have improved with only tachycardia at this time. Improved leukocytosis, afebrile, normal blood pressure, normal respiratory rate, normal oxygenation at 94% on room air. Blood cultures have been obtained and showing no growth at this time. Continue monitoring vitals. (2) Pneumonia involving right lung: Code(s): J18.9 - Pneumonia, unspecified organism Status: Acute Assessment and Plan: She has been feeling unwell for approximately 1 month, and despite outpatient Levaquin her pneumonia has continued to progress. Questionable right lower lobe mass, but difficult to tell given the consolidation. She was initially started on IV Azithromycin and Ceftriaxone. Dr. Mendoza [employer] Operator Helper, evaluated the patient last night and discontinued Azithromycin and Ceftriaxone and started IV Unasyn. Continue Nebulizers scheduled q.6 hours. Mucinex and Cornet to help mobilize secretions. Continue monitoring respiratory status, and recheck CXR in the morning. (3) Hyponatremia: Code(s): E87.1 - Hypo-osmolality and hyponatremia Status: Acute Assessment and Plan: Hyponatremia is severe and was 119 on initial presentation, today sodium was slightly improved at 129. Etiology is not entirely clear, but likely multifactorial to include decreased oral intake and possible SIADH from pulmonary disease and pneumonia. Nephrology is involved and has placed the patient on a fluid restriction at 1500 cc and has her on IV fluid hydration. Her sodium is slowly improving. Nephrology input is greatly appreciated. TSH was normal. Urine Sodium was <5 showing severe dehydration and FENa was 0%. Urine osmolalities are pending. Continue monitoring patient's sodium with a BMP daily and urine output. (4) Sinus tachycardia: Code(s): R00.0 - Tachycardia, unspecified Status: Acute Assessment and Plan: Patient's telemetry shows sinus tachycardia today in the 120s. She denies any palpitations, lightheadedness or dizziness today. Telemetry shows sinus tachycardia with a heart rate of 116. Was episode where her heart rate was in the 150s. Few PACs were noted. But no other acute abnormality. Will get an EKG to rule out any underlying arrhythmia. She does have good reason this or why she could be tachycardic due to pneumonia, acute respiratory failure, sepsis, but we also have to consider possible PE due to possible underlying cancer along with hypoxia. The patient is currently back on room air and tolerating it well at this time. Since shortness of breath is improving, and symptoms are improving overall I will hold off on a CTA of her chest at this time. If she is still tachycardic in the morning consider a CTA of her chest to rule out PE further evaluate her pneumonia. (5) Thrush, oral: Code(s): B37.0 - Candidal stomatitis Status: Acute Assessment and Plan: Patient reports having a dry mouth, white chalk like material on the roof of her mouth into her gum line that she scraped off. She also reports that food does not taste good anymore. This sounds like thrush and I will start her on oral nystatin rinse q.i.d. for 7 days. (6) COPD with emphysema: Code(s): J43.9 - Emphysema, unspecified Status: Acute Assessment and Plan: No evidence of acute exacerbation at this ti
[2020-01-06] MEDS: NYSTATIN 100,000 UNITS/ML SUSP 5 ML ORAL.SUSP PO ×2 (17:42→21:28)
--- NOTE | 2020-01-06 17:43 | ECG_ITS ---
Measurements Intervals Page Rate: 132 P: 81 ID: [id number] QRS: 73 QRSD: 97 T: 61 QT: 270 QTc: 400 Interpretive Statements SINUS TACHYCARDIA INCOMPLETE RIGHT BUNDLE BRANCH BLOCK ABNORMAL ECG Electronically Signed On 01-07-2020 7:08:09 ENVIRONMENTAL MONITORING SPECIALIST by Vinicio King D.O.
[2020-01-06] MEDS: MAGNESIUM SULF 2 GM/WATER 50ML 2 GM/50 ML BAG IVPB (18:42)
[2020-01-06] MEDS: busPIRone HCL 2.5 MG, busPIRone HCL 5 MG 7.5 MG PO (21:28)
[2020-01-06] MEDS: LATANOPROST 0.005% OP SOLN 2.5 ML BTL 1 DROP EACH EYE (21:29)
[2020-01-07] VITALS (19 sets, daily range): BP systolic 117–136; BP diastolic 48–52; PULSE 78–133; RESP 18–20; TEMP 36.5–37.4; O2SAT 90–95
[2020-01-07] MEDS: AMPICILLIN SULB 3 GM/NS 100 ML 3 GM/100 ML VIAL IVPB ×4 (00:37→18:04)
[2020-01-07] MEDS: IPRATROPIUM BR 0.02% INH SOLN 0.5 MG/2.5 ML VIAL INHALATION ×4 (04:07→20:40)
[2020-01-07] MEDS: SODIUM CHLORIDE 0.9% IV 1,000 ML 75 ML IV CONT ×2 (04:29→18:00)
[2020-01-07 06:04] LABS: Basophils Absolute Auto 0.1 K/mm3 (0.0-0.1); Basophils Percent Auto 0.5 % (0.2-1.2); Eosinophils Percent Auto 0.1 % (0-4.4); Hematocrit 29.3 % (37.0-47.0); Hemoglobin 9.7 g/dL (12.0-15.0); Immature Granulocyte Absolute 0.34 K/mm3 (0.00-0.031); Immature Granulocyte Percent A 2.7 % (0-0.5); Lymphocytes Absolute Auto 1.38 K/mm3 (0.9-3.2); Lymphocytes Percent Auto 10.8 % (18.3-44.2); Mean Corpuscular HGB Conc 33.1 g/dl (32-36); Mean Corpuscular Hemoglobin 30.5 pg (26-34); Mean Corpuscular Volume 92.1 fl (80-100); Mean Platelet Volume 8.6 fl (7.4-10.4); Monocytes Percent Auto 7.6 % (2.6-8.5); Neutrophils Absolute Auto 10.1 K/mm3 (1.3-6.7); Neutrophils Percent Auto 78.3 % (45.5-73.1); Platelet Count Result 361 k/mm3 (150-375); Red Blood Count 3.18 M/mm3 (4.2-5.4); Red Cell Distribution Width 13.5 % (11.5-14.5); White Blood Count 12.8 K/mm3 (4.5-10.0)
[2020-01-07 06:23] LABS: Blood Urea Nitrogen 6 mg/dL (7-17); Carbon Dioxide 29 mmol/L (22-30); Chloride 92 mmol/L (98-107); Estimated CRCL calculation 105 ml/min; Estimated Glomerular Filt Rate > 60; Glucose 97 mg/dL (65-105); Potassium 3.2 mmol/L (3.4-5.0); Sodium 130 mmol/L (137-145)
[2020-01-07 06:59] LABS: HIV 1/2 Ab P24 Ag Result Negative (Negative)
--- NOTE | 2020-01-07 08:57 | P.PNIM_ITS ---
Progress Note: A&P Assessment and Plan (1) Sepsis: Code(s): A41.9 - Sepsis, unspecified organism Status: Acute Assessment and Plan: * Present on admission and supported by tachycardia, leukocytosis, and elevated lactic acid level in the setting of pneumonia. * Lactic acid on arrival was 3.2, then went to 3.5 and then normalized. * Today the patient's vitals have improved with only tachycardia at this time. Continued leukocytosis. She remains afebrile, normal blood pressure, normal respiratory rate, normal oxygenation at 94% on room air. * Blood cultures have been obtained and showing no growth at this time. * Continue monitoring vitals. (2) Pneumonia involving right lung: Code(s): J18.9 - Pneumonia, unspecified organism Status: Acute Assessment and Plan: * She has been feeling unwell for approximately 1 month, and despite outpatient Levaquin her pneumonia has continued to progress. * Questionable right lower lobe mass, but difficult to tell given the consolidation. * She was initially started on IV Azithromycin and Ceftriaxone. * Dr. Mendoza Program Consultant, evaluated the patient last night and discontinued Azithromycin and Ceftriaxone and started IV Unasyn. * Continue Nebulizers scheduled q.6 hours. * Mucinex and Cornet to help mobilize secretions. * Chest x-ray is ordered for this morning and still pending. * Continue monitoring respiratory status. (3) Hyponatremia: Code(s): E87.1 - Hypo-osmolality and hyponatremia Status: Acute Assessment and Plan: * Hyponatremia is severe and was 119 on initial presentation, today sodium was slightly improved at 130. * Etiology is not entirely clear, but likely multifactorial to include decreased oral intake, volume depletion, and possible SIADH from pulmonary disease and pneumonia. * Nephrology is involved and has placed the patient on a fluid restriction at 1500 cc and has her on IV fluid hydration. * Her sodium is slowly improving. * Nephrology input is greatly appreciated. * TSH was normal. * Urine Sodium was <5 showing severe dehydration and FENa was 0%. * Urine osmolalities are pending. * Continue monitoring patient's sodium with a BMP daily and urine output. (4) Sinus tachycardia: Code(s): R00.0 - Tachycardia, unspecified Status: Acute Assessment and Plan: * She does have good reason this or why she could be tachycardic due to pneumonia, acute respiratory failure, sepsis, but we also have to consider possible PE due to possible underlying cancer along with hypoxia. * She denies any chest pain, palpitations, lightheadedness or dizziness today and hypoxia and SOB is improving. * Telemetry shows sinus tachycardia with a heart rate of 121. Last night around 1700 she was in the 140s but she may have been walking. Few PACs were noted. But no other acute abnormality. * EKG last night just showed sinus tachycardia, HR 132 with an incomplete RBBB, otherwise no abnormality. * Continue monitoring on Tele and patients overall symptoms. (5) Thrush, oral: Code(s): B37.0 - Candidal stomatitis Status: Acute Assessment and Plan: * Patient reports having a dry mouth, white chalk like material on the roof of her mouth into her gum line that she scraped off. * She also reports that food does not taste good anymore. * This sounds like thrush and I will start
--- NOTE | 2020-01-07 08:57 | PM.IMPN ---
Progress Note: A&P Assessment and Plan (1) Sepsis: Code(s): A41.9 - Sepsis, unspecified organism Status: Acute Assessment and Plan: Present on admission and supported by tachycardia, leukocytosis, and elevated lactic acid level in the setting of pneumonia. Lactic acid on arrival was 3.2, then went to 3.5 and then normalized. Today the patient's vitals have improved with only tachycardia at this time. Continued leukocytosis. She remains afebrile, normal blood pressure, normal respiratory rate, normal oxygenation at 94% on room air. Blood cultures have been obtained and showing no growth at this time. Continue monitoring vitals. (2) Pneumonia involving right lung: Code(s): J18.9 - Pneumonia, unspecified organism Status: Acute Assessment and Plan: She has been feeling unwell for approximately 1 month, and despite outpatient Levaquin her pneumonia has continued to progress. Questionable right lower lobe mass, but difficult to tell given the consolidation. She was initially started on IV Azithromycin and Ceftriaxone. Dr. Mendoza Chicken Dresser, evaluated the patient last night and discontinued Azithromycin and Ceftriaxone and started IV Unasyn. Continue Nebulizers scheduled q.6 hours. Mucinex and Cornet to help mobilize secretions. Chest x-ray is ordered for this morning and still pending. Continue monitoring respiratory status. (3) Hyponatremia: Code(s): E87.1 - Hypo-osmolality and hyponatremia Status: Acute Assessment and Plan: Hyponatremia is severe and was 119 on initial presentation, today sodium was slightly improved at 130. Etiology is not entirely clear, but likely multifactorial to include decreased oral intake, volume depletion, and possible SIADH from pulmonary disease and pneumonia. Nephrology is involved and has placed the patient on a fluid restriction at 1500 cc and has her on IV fluid hydration. Her sodium is slowly improving. Nephrology input is greatly appreciated. TSH was normal. Urine Sodium was <5 showing severe dehydration and FENa was 0%. Urine osmolalities are pending. Continue monitoring patient's sodium with a BMP daily and urine output. (4) Sinus tachycardia: Code(s): R00.0 - Tachycardia, unspecified Status: Acute Assessment and Plan: She does have good reason this or why she could be tachycardic due to pneumonia, acute respiratory failure, sepsis, but we also have to consider possible PE due to possible underlying cancer along with hypoxia. She denies any chest pain, palpitations, lightheadedness or dizziness today and hypoxia and SOB is improving. Telemetry shows sinus tachycardia with a heart rate of 121. Last night around 1700 she was in the 140s but she may have been walking. Few PACs were noted. But no other acute abnormality. EKG last night just showed sinus tachycardia, HR 132 with an incomplete RBBB, otherwise no abnormality. Continue monitoring on Tele and patients overall symptoms. (5) Thrush, oral: Code(s): B37.0 - Candidal stomatitis Status: Acute Assessment and Plan: Patient reports having a dry mouth, white chalk like material on the roof of her mouth into her gum line that she scraped off. She also reports that food does not taste good anymore. This sounds like thrush and I will start her on oral nystatin rinse q.i.d. for 7 days. (6) COPD with emphysema: Code(s): J43.9 - Emphysema, unspecified Status: Acute Assessment and Plan: No evidence of acute exacerbation at this time. At this point she is not using any inhalers at home. Pulmonology will have to work with her to start maintenance dosing.
[2020-01-07] MEDS: POTASSIUM CHLORIDE 20 MEQ PACKET (FOR LIQUID) 40 MEQ PO (10:01)
[2020-01-07] MEDS: busPIRone HCL 2.5 MG, busPIRone HCL 5 MG 7.5 MG PO ×2 (10:01→20:59)
[2020-01-07] MEDS: NYSTATIN 100,000 UNITS/ML SUSP 5 ML ORAL.SUSP PO ×4 (10:05→21:00)
--- NOTE | 2020-01-07 11:58 | PCNFU ---
Nutrition Follow-Up Complete: Underweight related to inadequate intake/increased expenditure as evidenced by BMi of 15.8. Patient to consume 75% of meals or greater. Goal:progressing towards goal. Pt current nutrition is Regular,Level 7 with 1500 ml Fluid Restriction. Nutrition recommendation: Agree Last recorded weight is 41.8 kg. Bowel Motility:+BM Labs Reviewed:Na 130,BUN 6, Cr 0.3, K 3.2 Meds Noted:Mucinex Additional Notes: Patient has thrush that is being treated. I explained the fluid restriction today. She likes to drink water or soda. She does have Ensure ordered but has not received that. She states she would rather have water or soda vs Ensure. I encouraged her to have at least 120 ml of Ensure for increased kcal and energy needs. Overall intake has [id number]% of meals. Agree with diet order. Monitoring: Follow up in 5 days.
--- NOTE | 2020-01-07 16:39 | PM.PNPUL ---
Progress Note: A&P Assessment and Plan (1) Pneumonia involving right lung: Code(s): J18.9 - Pneumonia, unspecified organism Status: Acute Assessment and Plan: She has a large right sided necrotizing pneumonia that has worsened over the last month, Dec 16, with worrisome findings including low Na+ 119, now Na+ is 130 with NS and fluid restriction, high WBC 20K, now 12.8K, hypoxemia requiring L/min, failure to respond to Levaquin x 10 days; she had a fever however none for the last day; had weight loss prior to admission; She is now on Unasyn, and vanco was added today. Sputum shows fungal elements, no AFB on smear, and Gram stain shows mixed antonio with normal oral antonio on culture. She denies having vomiting, however with low Na+ 119 prior to admission, she easily could have vomited and aspirated. Urine antigens are pending. Infiltrate is large, dense, without effusion. There was an abnormal area in the right mid lung in 2017. PLAN: Continue antibiotics including Unasyn and vancomycin, await sputum studies, continue bronchodilator therapy, and monitor. We talked with her about possible transfer to a hospital with a higher level of care including thoracic services for possible VATS. She would prefer [facility] in [place], [place]. I spoke with CTS surgeon today, who said that he would not recommend any other treatment at this time. I will call him tomorrow to ceck in again about this patient, to see if she is any worse, and consider transfer at that time. Jenn Aguirre was present and initiated the call. (2) COPD with emphysema: Code(s): J43.9 - Emphysema, unspecified Status: Acute Assessment and Plan: Was smoking until a few weeks ago. She has PFTs from 2017 that confirm this, and is not on any controller med. Symbicort was added, and she can continue bronchodilator therapy. (3) Tobacco abuse: Code(s): Z72.0 - Tobacco use Status: Acute Assessment and Plan: Smoked 1 ppd sometimes 2 ppd, none for almost a month; no longer smoking marijuana (4) Protein calorie malnutrition: Code(s): E46 - Unspecified protein-calorie malnutrition Status: Acute Assessment and Plan: Gradual weight loss with other symptoms is concerning for malignancy. (5) Acute hyponatremia: Code(s): E87.1 - Hypo-osmolality and hyponatremia Status: Acute Assessment and Plan: Was 119, improved, now 130. She is hypochloremic. Her electrolytes are being managed by Dr. Armstrong. I agree with his comments about possible cancer under the infiltrate as a cause for her Na+. Her CXR has not been normal for a while, worse today. (6) Acute hypoxemic respiratory failure: Code(s): J96.01 - Acute respiratory failure with hypoxia Status: Acute Assessment and Plan: Due to infiltrate, on nasal cannula O2 with improved saturation; Will continue to wean, and may need Home O2 evaluation at some point. (7) Obstructive sleep apnea on CPAP: Code(s): G47.33 - Obstructive sleep apnea (adult) (pediatric); Z99.89 - Dependence on other enabling machines and devices Status: Acute Assessment and Plan: This is per history. She uses CPAP at home when she is not sick. Subjective Date/time seen: 01/07/20 16:39 This 59 yo female is seen in follow up for necrotizing pneumonia in the right lung. Her CXR is worse, and she continues to expectorate foul smelling sputum. WBC is about the same. Her is at the bedside. She is on 2
[2020-01-07] MEDS: LATANOPROST 0.005% OP SOLN 2.5 ML BTL 1 DROP EACH EYE (21:00)
[2020-01-07] MEDS: DILTIAZEM HCL 30 MG TABLET PO (21:07)
[2020-01-08] VITALS (22 sets, daily range): BP systolic 107–124; BP diastolic 45–54; PULSE 77–134; RESP 16–22; TEMP 36.4–39.9; O2SAT 90–96
[2020-01-08] MEDS: AMPICILLIN SULB 3 GM/NS 100 ML 3 GM/100 ML VIAL IVPB ×5 (00:22→23:59)
[2020-01-08] MEDS: SODIUM CHLORIDE 0.9% IV 250 ML 999 ML IV CONT (00:47)
[2020-01-08] MEDS: DILTIAZEM HCL 30 MG TABLET PO ×4 (01:27→18:05)
[2020-01-08] MEDS: IPRATROPIUM BR 0.02% INH SOLN 0.5 MG/2.5 ML VIAL INHALATION ×3 (03:20→13:37)
[2020-01-08 06:10] LABS: Basophils Absolute Auto 0.1 K/mm3 (0.0-0.1); Basophils Percent Auto 0.4 % (0.2-1.2); Eosinophils Percent Auto 0.1 % (0-4.4); Hematocrit 29.3 % (37.0-47.0); Hemoglobin 9.4 g/dL (12.0-15.0); Immature Granulocyte Absolute 0.28 K/mm3 (0.00-0.031); Immature Granulocyte Percent A 1.8 % (0-0.5); Lymphocytes Absolute Auto 1.59 K/mm3 (0.9-3.2); Lymphocytes Percent Auto 10.1 % (18.3-44.2); Mean Corpuscular HGB Conc 32.1 g/dl (32-36); Mean Corpuscular Hemoglobin 30.1 pg (26-34); Mean Corpuscular Volume 93.9 fl (80-100); Mean Platelet Volume 8.6 fl (7.4-10.4); Monocytes Absolute Auto 1.2 K/mm3 (0.1-0.6); Monocytes Percent Auto 7.5 % (2.6-8.5); Neutrophils Absolute Auto 12.7 K/mm3 (1.3-6.7); Neutrophils Percent Auto 80.1 % (45.5-73.1); Platelet Count Result 377 k/mm3 (150-375); Red Blood Count 3.12 M/mm3 (4.2-5.4); Red Cell Distribution Width 13.8 % (11.5-14.5); White Blood Count 15.8 K/mm3 (4.5-10.0)
[2020-01-08 06:33] LABS: Blood Urea Nitrogen 6 mg/dL (7-17); Calcium 6.9 mg/dL (8.4-10.2); Carbon Dioxide 29 mmol/L (22-30); Chloride 90 mmol/L (98-107); Estimated CRCL calculation 105 ml/min; Estimated Glomerular Filt Rate > 60; Glucose 85 mg/dL (65-105); Magnesium 1.6 mg/dL (1.6-2.3); Potassium 3.2 mmol/L (3.4-5.0); Sodium 128 mmol/L (137-145)
[2020-01-08] MEDS: POTASSIUM CHLORIDE 20 MEQ TABLET 40 MEQ PO ×2 (08:50→18:04)
[2020-01-08] MEDS: busPIRone HCL 2.5 MG, busPIRone HCL 5 MG 7.5 MG PO ×2 (08:50→21:21)
[2020-01-08] MEDS: NYSTATIN 100,000 UNITS/ML SUSP 5 ML ORAL.SUSP PO ×4 (08:51→21:22)
--- NOTE | 2020-01-08 11:22 | PM.PNNEP ---
Progress Note: A&P Assessment and Plan (1) Hyponatremia: Code(s): E87.1 - Hypo-osmolality and hyponatremia Status: Acute Assessment and Plan: sodium a little worse today suspect multifactorial etiology: - mild volume depletion (low urine sodium) - possible SIADH -- COPD -- severe pneumonia -- given worsening appearance of pneumonia on imaging, this may explain the drop in sodium -- significant smoking history -- possible malignancy(?) but seems less likely TSH okay follow-up on pending tests follow trend of sodium - improving with fluid restriction and normal saline (2) Pneumonia involving right lung: Code(s): J18.9 - Pneumonia, unspecified organism Status: Acute Assessment and Plan: on antibiotics continue supportive care Will continue to follow intermittently with regard to her sodium level. Subjective Date/time seen: 01/08/20 11:22 Sodium a little lower today in comparison to yesterday; imaging studies demonstrate worsening of pneumonia despite all interventions to date; no other acute issues or problmes voiced at this time. Exam Narrative: Exam Narrative: General: WD/WN female in NAD Heart: normal S1 and S2; no rub Lungs: clear with some decreased breath sounds at bases Abdomen: soft, nontender, nondistended, positive bowel sounds Extremities: no cyanosis or clubbing; no edema Skin: warm and intact Objective Data Vital Signs Vital Signs: Vital Signs Temp Pulse Resp BP Pulse Ox 01/08/20 08:51 111 H 20 01/08/20 08:50 20 96 01/08/20 08:46 112 H 20 01/08/20 08:00 36.4 C 111 H 20 124/51 L 96 01/08/20 06:04 107/54 L 01/08/20 06:03 117/49 L 01/08/20 06:02 113/49 L 01/08/20 06:00 117/49 L 01/08/20 05:56 36.6 C 111 H 20 121/51 L 90 01/08/20 04:00 110 H 01/08/20 03:27 79 20 01/08/20 03:20 77 01/08/20 00:00 132 H 01/07/20 21:51 37.4 C 133 H 20 120/48 L 95 01/07/20 20:49 20 93 01/07/20 20:48 86 20 01/07/20 20:40 78 20 01/07/20 20:00 125 H 117/49 L 01/07/20 16:00 124 H 01/07/20 14:29 124 H 20 01/07/20 14:19 123 H 20 01/07/20 14:00 37.3 C 129 H 20 136/52 L 90 01/07/20 12:00 129 H Intake/Output Intake/Output: Intake & Output 01/05/20 01/06/20 01/07/20 01/08/20 23:59 23:59 23:59 23:59 Intake Total 3360 3458 2689 1360 Output Total 1999 2100 1650 1200 Balance 1360 1358 1039 160 Meds/Results Medications: Active Medications Generic Name Dose Route Start Last Admin Trade Name Freq PRN Reason Stop Dose Admin Budesonide/Formoterol Fumarate 2 puff 01/06/20 08:00 01/08/20 08:46 Symbicort 160-4.5 Mcg (*Sp) Inhaler INHALATION 2 puff Q12HRT SOTO Administration Buspirone HCl 2.5 mg/ 7.5 mg 01/06/20 21:00 01/08/20 08:50 Buspirone HCl 5 mg PO 7.5 mg Q12HR SOTO Administration Diltiazem HCl 30 mg 01/08/20 01:30 01/08/20 06:09 Cardizem Tab PO 30 mg Q6HR SOTO Administration Guaifenesin 600 mg 01/04/20 21:00 01/08/20 08:51 Mucinex 12 Hr Tab PO 600 mg Q12HR SOTO Administration Sodium Chloride 1,000 mls @ 40 mls/hr 01/04/20 11:05 01/07/20 21:48 Normal Saline Iv IV CONT 40 mls/hr .Q24H SOTO Infusion Ampicillin Sodium/Sulbactam Sodium 3 gm in 100 mls @ 200 mls/hr 01/05/20 23:00 01/08/20 08:06 Unasyn 3 Gm/Ns 100 Ml IVPB Infused Q6HR SOTO Infusion Vancomycin HCl 750 mg in 250 mls @ 250 mls/hr 01/07/20 17:00 01/08/20 07:10 Vancomycin 750 Mg/D5w 250 Ml IVPB Infused Q12H SOTO Infusion Ipratropium Brickeys 0.5 mg 01/04/20 14:00 01/08/20 08:45 Atrovent Neb INHALATION 0.5 mg Q6HRT SOTO Administration Latanoprost 1 drop 01/04/20 21:00 01/07/20 21:00 Xalatan EACH EYE 1 drop HS SOTO Administration Levalbuterol HCl 1.25 mg 01/06/20 14:00 01/08/20 08:46 Xopenex 1.25 Mg/0.5 Ml INHALATION 1.25 mg Q6HRT S
[2020-01-08 14:27] LABS: Legionella pneumophila Ag Ur Not Detected (Not Detected)
--- NOTE | 2020-01-08 14:37 | PC.NURSE ---
DR SILVERMAN ON FLOOR AND NOTIFIED OF PT ON TELE [facility], HE WILL SEE PATIENT
--- NOTE | 2020-01-08 16:59 | P.PNIM_ITS ---
Progress Note: A&P Assessment and Plan (1) Sepsis: Code(s): A41.9 - Sepsis, unspecified organism Status: Acute Assessment and Plan: * Present on admission and supported by tachycardia, leukocytosis, and elevated lactic acid level in the setting of pneumonia. * Lactic acid on arrival was 3.2, then went to 3.5 and then normalized. * Today the patient's vitals have improved with only tachycardia at this time. Continued leukocytosis. She remains afebrile, normal blood pressure, normal respiratory rate, normal oxygenation at 94% on 1 L. * Blood cultures have been obtained and showing no growth at this time. * Continue monitoring vitals. (2) Pneumonia involving right lung: Code(s): J18.9 - Pneumonia, unspecified organism Status: Acute Assessment and Plan: * She has been feeling unwell for approximately 1 month, and despite outpatient Levaquin her pneumonia has continued to progress. * Questionable right lower lobe mass, but difficult to tell given the consolidation. * She was initially started on IV Azithromycin and Ceftriaxone. * Dr. Mendoza Ultrasonic Tester, evaluated the patient last night and discontinued Azithromycin and Ceftriaxone and started IV Unasyn * now on Vancomycin, Unasyn and now doxycycline. * Continue Nebulizers scheduled q.6 hours. * Mucinex and Cornet to help mobilize secretions.. * Continue monitoring respiratory status. (3) Hyponatremia: Code(s): E87.1 - Hypo-osmolality and hyponatremia Status: Acute Assessment and Plan: * Hyponatremia is severe and was 119 on initial presentation, today sodium was slightly improved at 128. * Etiology is not entirely clear, but likely multifactorial to include decreased oral intake, volume depletion, and possible SIADH from pulmonary disease and pneumonia. * * Nephrology is involved and has placed the patient on a fluid restriction at 1500 cc and has her on IV fluid hydration. * Nephrology input is greatly appreciated. * TSH was normal. * Urine Sodium was <5 showing severe dehydration and FENa was 0%. favoring dehydration * Urine osmolalities are pending. * Continue monitoring patient's sodium with a BMP daily and urine output. (4) Sinus tachycardia: Code(s): R00.0 - Tachycardia, unspecified Status: Acute Assessment and Plan: * She does have good reason this or why she could be tachycardic due to pneumonia, acute respiratory failure, sepsis, as cause of hypoxia * She denies any chest pain, palpitations, lightheadedness or dizziness today and hypoxia and SOB is improving. * Telemetry shows sinus tachycardia with a heart rate of 121. Last night around 1700 she was in the 140s but she may have been walking. Few PACs were noted. But no other acute abnormality. check bnp * EKG last night just showed sinus tachycardia, HR 132 with an incomplete RBBB, otherwise no abnormality. * Continue monitoring on Tele and patients overall symptoms. (5) Thrush, oral: Code(s): B37.0 - Candidal stomatitis Status: Acute Assessment and Plan: * Patient reports having a dry mouth, white chalk like material on the roof of her mouth into her gum line that she scraped off. * She also reports that food does not taste good anymore. * This sounds like thrush and I will start her on oral nystatin rinse q.i.d. for 7 days.
--- NOTE | 2020-01-08 16:59 | PM.IMPN ---
Progress Note: A&P Assessment and Plan (1) Sepsis: Code(s): A41.9 - Sepsis, unspecified organism Status: Acute Assessment and Plan: Present on admission and supported by tachycardia, leukocytosis, and elevated lactic acid level in the setting of pneumonia. Lactic acid on arrival was 3.2, then went to 3.5 and then normalized. Today the patient's vitals have improved with only tachycardia at this time. Continued leukocytosis. She remains afebrile, normal blood pressure, normal respiratory rate, normal oxygenation at 94% on 1 L. Blood cultures have been obtained and showing no growth at this time. Continue monitoring vitals. (2) Pneumonia involving right lung: Code(s): J18.9 - Pneumonia, unspecified organism Status: Acute Assessment and Plan: She has been feeling unwell for approximately 1 month, and despite outpatient Levaquin her pneumonia has continued to progress. Questionable right lower lobe mass, but difficult to tell given the consolidation. She was initially started on IV Azithromycin and Ceftriaxone. Dr. Mendoza [employer], evaluated the patient last night and discontinued Azithromycin and Ceftriaxone and started IV Unasyn now on Vancomycin, Unasyn and now doxycycline. Continue Nebulizers scheduled q.6 hours. Mucinex and Cornet to help mobilize secretions.. Continue monitoring respiratory status. (3) Hyponatremia: Code(s): E87.1 - Hypo-osmolality and hyponatremia Status: Acute Assessment and Plan: Hyponatremia is severe and was 119 on initial presentation, today sodium was slightly improved at 128. Etiology is not entirely clear, but likely multifactorial to include decreased oral intake, volume depletion, and possible SIADH from pulmonary disease and pneumonia. Nephrology is involved and has placed the patient on a fluid restriction at 1500 cc and has her on IV fluid hydration. Nephrology input is greatly appreciated. TSH was normal. Urine Sodium was <5 showing severe dehydration and FENa was 0%. favoring dehydration Urine osmolalities are pending. Continue monitoring patient's sodium with a BMP daily and urine output. (4) Sinus tachycardia: Code(s): R00.0 - Tachycardia, unspecified Status: Acute Assessment and Plan: She does have good reason this or why she could be tachycardic due to pneumonia, acute respiratory failure, sepsis, as cause of hypoxia She denies any chest pain, palpitations, lightheadedness or dizziness today and hypoxia and SOB is improving. Telemetry shows sinus tachycardia with a heart rate of 121. Last night around 1700 she was in the 140s but she may have been walking. Few PACs were noted. But no other acute abnormality. check bnp EKG last night just showed sinus tachycardia, HR 132 with an incomplete RBBB, otherwise no abnormality. Continue monitoring on Tele and patients overall symptoms. (5) Thrush, oral: Code(s): B37.0 - Candidal stomatitis Status: Acute Assessment and Plan: Patient reports having a dry mouth, white chalk like material on the roof of her mouth into her gum line that she scraped off. She also reports that food does not taste good anymore. This sounds like thrush and I will start her on oral nystatin rinse q.i.d. for 7 days. (6) COPD with emphysema: Code(s): J43.9 - Emphysema, unspecified Status: Acute Assessment and Plan: No evidence of acute exacerbation at this time. At this point she is not using any inhalers at home. Pulmonology will have to work with her to start maintenance dosing. (7) Obstructive sleep apnea on CPAP: Code(s): G4
[2020-01-08] MEDS: SODIUM CHLORIDE 0.9% IV 1,000 ML 60 ML IV CONT (18:00)
[2020-01-08] MEDS: DOXYCYCLINE HYCLATE 100 MG TABLET PO (18:06)
[2020-01-08 18:26] LABS: Pneumococcal Antigen Urine Not Detected (Not Detected)
--- NOTE | 2020-01-08 18:53 | PM.PNPUL ---
Progress Note: A&P Assessment and Plan (1) Pneumonia involving right lung: Code(s): J18.9 - Pneumonia, unspecified organism Status: Acute Assessment and Plan: She has a large right sided necrotizing pneumonia that has worsened over the last month, Dec 16, with worrisome findings including low Na+ 119, now Na+ is 130 with NS and fluid restriction, high WBC 20K, now 12.8K, hypoxemia requiring L/min, failure to respond to Levaquin x 10 days; she had a fever however none for the last day; had weight loss prior to admission; She is now on Unasyn, and vanco was added today. Sputum shows fungal elements, no AFB on smear, and Gram stain shows mixed antonio with normal oral antonio on culture. She denies having vomiting, however with low Na+ 119 prior to admission, she easily could have vomited and aspirated. Urine antigens are pending. Infiltrate is large, dense, without effusion. There was an abnormal area in the right mid lung in 2017. PLAN: Continue antibiotics including Unasyn and vancomycin, await sputum studies, continue bronchodilator therapy, and monitor.. (2) COPD with emphysema: Code(s): J43.9 - Emphysema, unspecified Status: Acute Assessment and Plan: Was smoking until a few weeks ago. She has PFTs from 2017 that confirm this, and is not on any controller med. Symbicort was added, and she can continue bronchodilator therapy. (3) Tobacco abuse: Code(s): Z72.0 - Tobacco use Status: Acute Assessment and Plan: Smoked 1 ppd sometimes 2 ppd, none for almost a month; no longer smoking marijuana (4) Protein calorie malnutrition: Code(s): E46 - Unspecified protein-calorie malnutrition Status: Acute Assessment and Plan: Gradual weight loss with other symptoms is concerning for malignancy. (5) Acute hyponatremia: Code(s): E87.1 - Hypo-osmolality and hyponatremia Status: Acute Assessment and Plan: Was 119, improved, now 130. She is hypochloremic. Her electrolytes are being managed by Dr. Armstrong. I agree with his comments about possible cancer under the infiltrate as a cause for her Na+. Her CXR has not been normal for a while, worse today. (6) Acute hypoxemic respiratory failure: Code(s): J96.01 - Acute respiratory failure with hypoxia Status: Acute Assessment and Plan: Due to infiltrate, on nasal cannula O2 with improved saturation; Will continue to wean, and may need Home O2 evaluation at some point. (7) Obstructive sleep apnea on CPAP: Code(s): G47.33 - Obstructive sleep apnea (adult) (pediatric); Z99.89 - Dependence on other enabling machines and devices Status: Acute Assessment and Plan: This is per history. She uses CPAP at home when she is not sick. Subjective Date/time seen: 01/08/20 18:53 This 59 yo female is seen in follow up for necrotizing pneumonia in the right lung. CXR yesterday 01/07 was worse. WBC 15.8K. She is coughing with brown sputum expectorated. Her sister is at the bedside. She is on 1-2 L/min. Feb , O2 was weaned off however she dropped to 89% on room. O2 was restarted. She has known ARELIS, and uses CPAP at home when she is not sick. Increased the Cornet to 3/5 resistance. Review of Systems Constitutional: Constitutional: Reports poor appetite and Reports weight loss (amount unknown, probably 10 lb or more) ENT: Reports nasal congestion Cardiovascular: Cardiovascular: Reports dyspnea Respiratory: Respiratory: Reports co
[2020-01-08] MEDS: ENOXAPARIN 40 MG/0.4 ML SYRINGE SUB-Q (21:21)
[2020-01-08] MEDS: LATANOPROST 0.005% OP SOLN 2.5 ML BTL 1 DROP EACH EYE (21:22)
--- NOTE | 2020-01-08 21:42 | PCRCNOTE ---
tx omitted @ this time HR 140's
[2020-01-08] MEDS: ACETAMINOPHEN 500 MG TABLET 1000 MG PO (22:04)
[2020-01-08 22:56] LABS: Albumin 1.6 g/dL (3.8-4.8); Alpha 1 Globulin 0.7 g/dL (0.2-0.3); Beta 1 Globulin 0.3 g/dL (0.4-0.6); Gamma Globulin 0.8 g/dL (0.8-1.7); Protein, Total 4.6 g/dL (6.1-8.1)
[2020-01-09] VITALS (22 sets, daily range): BP systolic 90–119; BP diastolic 44–71; PULSE 83–120; RESP 16–20; TEMP 36.4–38.1; O2SAT 93–99
[2020-01-09] MEDS: DILTIAZEM HCL 30 MG TABLET PO ×4 (00:04→17:52)
[2020-01-09] MEDS: IPRATROPIUM BR 0.02% INH SOLN 0.5 MG/2.5 ML VIAL INHALATION ×4 (01:04→21:59)
[2020-01-09 04:32] LABS: Basophils Absolute Auto 0.1 K/mm3 (0.0-0.1); Basophils Percent Auto 0.3 % (0.2-1.2); Hematocrit 31.6 % (37.0-47.0); Hemoglobin 9.8 g/dL (12.0-15.0); Immature Granulocyte Absolute 0.19 K/mm3 (0.00-0.031); Immature Granulocyte Percent A 1.3 % (0-0.5); Lymphocytes Absolute Auto 1.36 K/mm3 (0.9-3.2); Lymphocytes Percent Auto 9.3 % (18.3-44.2); Mean Corpuscular Hemoglobin 30.2 pg (26-34); Mean Corpuscular Volume 97.2 fl (80-100); Mean Platelet Volume 8.5 fl (7.4-10.4); Monocytes Absolute Auto 0.6 K/mm3 (0.1-0.6); Monocytes Percent Auto 4.2 % (2.6-8.5); Neutrophils Absolute Auto 12.5 K/mm3 (1.3-6.7); Neutrophils Percent Auto 84.9 % (45.5-73.1); Platelet Count Result 319 k/mm3 (150-375); Red Blood Count 3.25 M/mm3 (4.2-5.4); Red Cell Distribution Width 13.9 % (11.5-14.5); White Blood Count 14.7 K/mm3 (4.5-10.0)
[2020-01-09 04:48] LABS: Osmolality, Urine 233 mOsm/kg (50-1200)
[2020-01-09 05:02] LABS: Vancomycin Trough 5.9 ug/mL (10.0-20.0)
[2020-01-09 05:56] LABS: Blood Urea Nitrogen 7 mg/dL (7-17); Calcium 7.1 mg/dL (8.4-10.2); Carbon Dioxide 31 mmol/L (22-30); Chloride 96 mmol/L (98-107); Estimated CRCL calculation 105 ml/min; Estimated Glomerular Filt Rate > 60; Glucose 101 mg/dL (65-105); Potassium 3.9 mmol/L (3.4-5.0); Sodium 131 mmol/L (137-145)
[2020-01-09] MEDS: DOXYCYCLINE HYCLATE 100 MG TABLET PO ×2 (06:02→17:53)
[2020-01-09] MEDS: AMPICILLIN SULB 3 GM/NS 100 ML 3 GM/100 ML VIAL IVPB ×3 (08:53→17:52)
[2020-01-09] MEDS: NYSTATIN 100,000 UNITS/ML SUSP 5 ML ORAL.SUSP PO ×4 (08:59→21:19)
[2020-01-09] MEDS: busPIRone HCL 2.5 MG, busPIRone HCL 5 MG 7.5 MG PO ×2 (08:59→21:18)
--- NOTE | 2020-01-09 12:15 | P.PNIM_ITS ---
Progress Note: A&P Assessment and Plan (1) Sepsis: Code(s): A41.9 - Sepsis, unspecified organism Status: Acute Assessment and Plan: * Present on admission and supported by tachycardia, leukocytosis, and elevated lactic acid level in the setting of pneumonia. * Lactic acid on arrival was 3.2, then went to 3.5 and then normalized. * Today the patient's vitals have improved with only tachycardia at this time. Continued leukocytosis. She remains afebrile, normal blood pressure, normal respiratory rate, normal oxygenation at 98% on 2 L. * Blood cultures have been obtained and showing no growth at this time. * Continue monitoring vitals. (2) Pneumonia involving right lung: Code(s): J18.9 - Pneumonia, unspecified organism Status: Acute Assessment and Plan: * She has been feeling unwell for approximately 1 month, and despite outpatient Levaquin her pneumonia has continued to progress. * Questionable right lower lobe mass, but difficult to tell given the consolidation. * She was initially started on IV Azithromycin and Ceftriaxone. * Dr. Mendoza Patrol Deputy Sheriff, evaluated the patient last night and discontinued Azithromycin and Ceftriaxone and started IV Unasyn * now on Vancomycin, Unasyn and now doxycycline. * Urine antigens are negative too * Continue Nebulizers scheduled q.6 hours. * Mucinex and Cornet to help mobilize secretions.. * Continue monitoring respiratory status. (3) Hyponatremia: Code(s): E87.1 - Hypo-osmolality and hyponatremia Status: Acute Assessment and Plan: * Hyponatremia was severe and was 119 on initial presentation, today sodium has improved at 131. * Etiology is not entirely clear, but likely multifactorial to include decreased oral intake, volume depletion, and possible SIADH from pulmonary disease and pneumonia. * * Nephrology is involved and has placed the patient on a fluid restriction at 1500 cc and has her on IV fluid hydration. * TSH was normal. * Urine Sodium was <5 showing severe dehydration and FENa was 0%. favoring dehydration * Urine osmolalities are pending. * Continue monitoring patient's sodium with a BMP daily and urine output. (4) Sinus tachycardia: Code(s): R00.0 - Tachycardia, unspecified Status: Acute Assessment and Plan: * She does have good reason this or why she could be tachycardic due to pneumonia, acute respiratory failure, sepsis, as cause of hypoxia * She denies any chest pain, palpitations, lightheadedness or dizziness today and hypoxia and SOB is improving. * Telemetry shows sinus tachycardia but improved . Few PACs were noted. But no other acute abnormality. check bnp * EKG sinus tach only. * Continue monitoring on Tele and patients overall symptoms. (5) Thrush, oral: Code(s): B37.0 - Candidal stomatitis Status: Acute Assessment and Plan: * Patient reports having a dry mouth, white chalk like material on the roof of her mouth into her gum line that she scraped off. * She also reports that food does not taste good anymore. * This sounds like thrush and I will start her on oral nystatin rinse q.i.d. for 7 days. (6) COPD with emphysema: Code(s): J43.9 - Emphysema, unspecified Status: Acute Assessment and Plan: * No evidence of acute exac
--- NOTE | 2020-01-09 12:15 | PM.IMPN ---
Progress Note: A&P Assessment and Plan (1) Sepsis: Code(s): A41.9 - Sepsis, unspecified organism Status: Acute Assessment and Plan: Present on admission and supported by tachycardia, leukocytosis, and elevated lactic acid level in the setting of pneumonia. Lactic acid on arrival was 3.2, then went to 3.5 and then normalized. Today the patient's vitals have improved with only tachycardia at this time. Continued leukocytosis. She remains afebrile, normal blood pressure, normal respiratory rate, normal oxygenation at 98% on 2 L. Blood cultures have been obtained and showing no growth at this time. Continue monitoring vitals. (2) Pneumonia involving right lung: Code(s): J18.9 - Pneumonia, unspecified organism Status: Acute Assessment and Plan: She has been feeling unwell for approximately 1 month, and despite outpatient Levaquin her pneumonia has continued to progress. Questionable right lower lobe mass, but difficult to tell given the consolidation. She was initially started on IV Azithromycin and Ceftriaxone. Dr. Mendoza [employer] Process Worker, evaluated the patient last night and discontinued Azithromycin and Ceftriaxone and started IV Unasyn now on Vancomycin, Unasyn and now doxycycline. Urine antigens are negative too Continue Nebulizers scheduled q.6 hours. Mucinex and Cornet to help mobilize secretions.. Continue monitoring respiratory status. (3) Hyponatremia: Code(s): E87.1 - Hypo-osmolality and hyponatremia Status: Acute Assessment and Plan: Hyponatremia was severe and was 119 on initial presentation, today sodium has improved at 131. Etiology is not entirely clear, but likely multifactorial to include decreased oral intake, volume depletion, and possible SIADH from pulmonary disease and pneumonia. Nephrology is involved and has placed the patient on a fluid restriction at 1500 cc and has her on IV fluid hydration. TSH was normal. Urine Sodium was <5 showing severe dehydration and FENa was 0%. favoring dehydration Urine osmolalities are pending. Continue monitoring patient's sodium with a BMP daily and urine output. (4) Sinus tachycardia: Code(s): R00.0 - Tachycardia, unspecified Status: Acute Assessment and Plan: She does have good reason this or why she could be tachycardic due to pneumonia, acute respiratory failure, sepsis, as cause of hypoxia She denies any chest pain, palpitations, lightheadedness or dizziness today and hypoxia and SOB is improving. Telemetry shows sinus tachycardia but improved . Few PACs were noted. But no other acute abnormality. check bnp EKG sinus tach only. Continue monitoring on Tele and patients overall symptoms. (5) Thrush, oral: Code(s): B37.0 - Candidal stomatitis Status: Acute Assessment and Plan: Patient reports having a dry mouth, white chalk like material on the roof of her mouth into her gum line that she scraped off. She also reports that food does not taste good anymore. This sounds like thrush and I will start her on oral nystatin rinse q.i.d. for 7 days. (6) COPD with emphysema: Code(s): J43.9 - Emphysema, unspecified Status: Acute Assessment and Plan: No evidence of acute exacerbation at this time. At this point she is not using any inhalers at home. Pulmonology will have to work with her to start maintenance dosing. (7) Obstructive sleep apnea on CPAP: Code(s): G47.33 - Obstructive sleep apnea (adult) (pediatric); Z99.89 - Dependence on other enabling machines and devices Status: Acute Assessment and Plan: CPAP ordered for nap
[2020-01-09] MEDS: ACETAMINOPHEN 325 MG TABLET 650 MG PO (18:36)
--- NOTE | 2020-01-09 19:54 | PM.PNPUL ---
Progress Note: A&P Assessment and Plan (1) Pneumonia involving right lung: Code(s): J18.9 - Pneumonia, unspecified organism Status: Acute Assessment and Plan: She has a large right sided necrotizing pneumonia that has worsened over the last month, Dec 16, with worrisome findings including low Na+ 119, now Na+ is 130 with NS and fluid restriction, high WBC 20K, now 12.8K, hypoxemia requiring L/min, failure to respond to Levaquin x 10 days; she had a fever however none for the last day; had weight loss prior to admission; She is now on Unasyn, and vanco was added today. Sputum shows fungal elements, no AFB on smear, and Gram stain shows mixed antonio with normal oral antonio on culture. She denies having vomiting, however with low Na+ 119 prior to admission, she easily could have vomited and aspirated. Urine antigens are pending. Infiltrate is large, dense, without effusion. There was an abnormal area in the right mid lung in 2017. PLAN: Continue antibiotics including Unasyn and vancomycin, monitor clinical progress; continue bronchodilator therapy, and monitor. She had abnormal CXR and CT since 2017, was seeing Dr. Urrutia, did not follow up routinely and says taht Dr. Urrutia ordered too many tests. She had a mass on the right, pt says this is the first she has heard of it, which is not so. (2) COPD with emphysema: Code(s): J43.9 - Emphysema, unspecified Status: Acute Assessment and Plan: Was smoking until a few weeks ago. She has PFTs from 2017 that confirm this, and is not on any controller med. Symbicort was added, and she can continue bronchodilator therapy. (3) Tobacco abuse: Code(s): Z72.0 - Tobacco use Status: Acute Assessment and Plan: Smoked 1 ppd sometimes 2 ppd, none for almost a month; no longer smoking marijuana (4) Protein calorie malnutrition: Code(s): E46 - Unspecified protein-calorie malnutrition Status: Acute Assessment and Plan: Gradual weight loss with other symptoms is concerning for malignancy. (5) Acute hyponatremia: Code(s): E87.1 - Hypo-osmolality and hyponatremia Status: Acute Assessment and Plan: Was 119, improved, now 130. She is hypochloremic. Her electrolytes are being managed by Dr. Armstrong. I agree with his comments about possible cancer under the infiltrate as a cause for her Na+. Her CXR has not been normal for a while, worse today. (6) Acute hypoxemic respiratory failure: Code(s): J96.01 - Acute respiratory failure with hypoxia Status: Acute Assessment and Plan: Due to infiltrate, on nasal cannula O2 with improved saturation; Will continue to wean, and may need Home O2 evaluation at some point. (7) Obstructive sleep apnea on CPAP: Code(s): G47.33 - Obstructive sleep apnea (adult) (pediatric); Z99.89 - Dependence on other enabling machines and devices Status: Acute Assessment and Plan: This is per history. She uses CPAP at home when she is not sick. Subjective Date/time seen: 01/09/20 19:54 This 59 yo female is seen in follow up for necrotizing pneumonia in the right lung. CXR yesterday 01/07 was worse. WBC 15.8K. She is coughing with brown sputum expectorated. Her sister is at the bedside. She is on 1-2 L/min. Feb 9, O2 was weaned off however she dropped to 89% on room. O2 was restarted. She has known ARELIS, and uses CPAP at home when she is not sick Increased the Cornet to 3/5 resistance. Review of Systems Constitutional:
[2020-01-09] MEDS: ENOXAPARIN 40 MG/0.4 ML SYRINGE SUB-Q (21:18)
[2020-01-09] MEDS: LATANOPROST 0.005% OP SOLN 2.5 ML BTL 1 DROP EACH EYE (21:19)
[2020-01-09] MEDS: SODIUM CHLORIDE 0.9% IV 1,000 ML 60 ML IV CONT (22:35)
[2020-01-10] VITALS (17 sets, daily range): BP systolic 118–166; BP diastolic 55–66; PULSE 99–138; RESP 18–22; TEMP 36.8–37.6; O2SAT 93–96
[2020-01-10] MEDS: DILTIAZEM HCL 30 MG TABLET PO ×3 (00:04→13:11)
[2020-01-10] MEDS: AMPICILLIN SULB 3 GM/NS 100 ML 3 GM/100 ML VIAL IVPB ×3 (00:04→13:01)
[2020-01-10] MEDS: IPRATROPIUM BR 0.02% INH SOLN 0.5 MG/2.5 ML VIAL INHALATION ×3 (03:34→15:02)
[2020-01-10 06:05] LABS: Albumin Level 2.1 g/dL (3.5-5.1); Blood Urea Nitrogen 11 mg/dL (7-17); Calcium 7.2 mg/dL (8.4-10.2); Carbon Dioxide 32 mmol/L (22-30); Chloride 93 mmol/L (98-107); Estimated CRCL calculation 105 ml/min; Estimated Glomerular Filt Rate > 60; Glucose 83 mg/dL (65-105); Phosphorus 2.6 mg/dL (2.5-4.5); Potassium 3.1 mmol/L (3.4-5.0); Sodium 132 mmol/L (137-145)
[2020-01-10 06:06] LABS: Basophils Percent Auto 0.1 % (0.2-1.2); Hematocrit 31.6 % (37.0-47.0); Hemoglobin 10.4 g/dL (12.0-15.0); Immature Granulocyte Percent A 1.4 % (0-0.5); Lymphocytes Absolute Auto 0.81 K/mm3 (0.9-3.2); Lymphocytes Percent Auto 5.5 % (18.3-44.2); Mean Corpuscular HGB Conc 32.9 g/dl (32-36); Mean Corpuscular Hemoglobin 30.3 pg (26-34); Mean Corpuscular Volume 92.1 fl (80-100); Mean Platelet Volume 8.5 fl (7.4-10.4); Monocytes Absolute Auto 0.4 K/mm3 (0.1-0.6); Monocytes Percent Auto 2.7 % (2.6-8.5); Neutrophils Absolute Auto 13.2 K/mm3 (1.3-6.7); Neutrophils Percent Auto 90.3 % (45.5-73.1); Platelet Count Result 329 k/mm3 (150-375); Red Blood Count 3.43 M/mm3 (4.2-5.4); Red Cell Distribution Width 13.7 % (11.5-14.5); White Blood Count 14.7 K/mm3 (4.5-10.0)
[2020-01-10] MEDS: DOXYCYCLINE HYCLATE 100 MG TABLET PO (06:20)
[2020-01-10] MEDS: busPIRone HCL 2.5 MG, busPIRone HCL 5 MG 7.5 MG PO (08:35)
[2020-01-10] MEDS: NYSTATIN 100,000 UNITS/ML SUSP 5 ML ORAL.SUSP PO ×2 (08:35→13:11)
[2020-01-10] MEDS: POTASSIUM CHLORIDE 20 MEQ TABLET 40 MEQ PO (08:35)
--- NOTE | 2020-01-10 12:53 | PM.PNPUL ---
Progress Note: A&P Assessment and Plan (1) Pneumonia involving right lung: Qualifiers: Lung location: unspecified part of lung Pneumonia type: due to unspecified organism Qualified Code(s): J18.9 - Pneumonia, unspecified organism Code(s): J18.9 - Pneumonia, unspecified organism Status: Acute Assessment and Plan: She has a large right sided necrotizing pneumonia that has worsened over the last month, Dec 16, now with air fluid level, changing radiographically. Na is normal, was 119 on admission. WBC not as high 14.7. Hhypoxemia requiring 2L/min, failure to respond to Levaquin x 10 days; she now has fevers again, had weight loss prior to admission; She is now on Unasyn, and vanco. Sputum shows fungal elements, no AFB on smear, and Gram stain shows mixed antonio with normal oral antonio on culture. There was an abnormal area in the right mid lung in 2017. PLAN: Mod barium swallow to r/o aspiraton. Continue antibiotics including Unasyn and vancomycin, monitor clinical progress; continue bronchodilator therapy, and monitor. She had abnormal CXR and CT since 2017, was seeing Dr. Urrutia, did not follow up routinely and says that Dr. Urrutia ordered too many tests. She had a mass on the right, pt says this is the first she has heard of it, which is not so. (2) COPD with emphysema: Qualifiers: Emphysema type: unspecified Qualified Code(s): J43.9 - Emphysema, unspecified Code(s): J43.9 - Emphysema, unspecified Status: Acute Assessment and Plan: Was smoking until a few weeks ago. She has PFTs from 2017 that confirm this, and is not on any controller med. Symbicort was added, and she can continue bronchodilator therapy. (3) Tobacco abuse: Code(s): Z72.0 - Tobacco use Status: Acute Assessment and Plan: Smoked 1 ppd sometimes 2 ppd, none for almost a month; no longer smoking marijuana (4) Protein calorie malnutrition: Qualifiers: Protein-calorie malnutrition severity: unspecified severity Qualified Code(s): E46 - Unspecified protein-calorie malnutrition Code(s): E46 - Unspecified protein-calorie malnutrition Status: Acute Assessment and Plan: Gradual weight loss with other symptoms is concerning for malignancy. (5) Acute hyponatremia: Code(s): E87.1 - Hypo-osmolality and hyponatremia Status: Acute Assessment and Plan: Was 119, improved, now 132; Her electrolytes are being managed by Dr. Armstrong. I agree with his comments about possible cancer under the infiltrate as a cause for her Na+. Her CXR has not been normal for a while, worse today. (6) Acute hypoxemic respiratory failure: Code(s): J96.01 - Acute respiratory failure with hypoxia Status: Acute Assessment and Plan: Due to infiltrate, on nasal cannula O2 with improved saturation; Will continue to wean, and may need Home O2 evaluation at some point. (7) Obstructive sleep apnea on CPAP: Code(s): G47.33 - Obstructive sleep apnea (adult) (pediatric); Z99.89 - Dependence on other enabling machines and devices Status: Acute Assessment and Plan: This is per history. She uses CPAP at home when she is not sick. Subjective Date/time seen: 01/10/20 12:53 This 59 yo female is seen in follow up for necrotizing pneumonia in the right lung. CXR 01/10 is worse. WBC 14.7, having fevers, still on 2 L/min. Still is coughing with brown sputum expectorated. Feb 9, O2 was weaned off however she
--- NOTE | 2020-01-10 13:01 | PCDIET ---
Nutrition Follow-Up Complete: Underweight related to inadequate intake/increased expenditure as evidenced by BMI of 15.8. Patient to consume 75% of meals or greater. Goal:Progressing towards goal. Continue with current goal. Pt current nutrition is Regular level 7 with 1500ml FR. Nutrition recommendation: Agree Last recorded weight is 41.8 kg. (need updated wt) Bowel Motility: No diarrhea since Tuesday Labs Reviewed:K 3.1, Na 132, Albumin 2.1 Meds Noted:KCL Additional Notes: Seeing pt for f/u today. Pt states appetite is growing. PO intake over three meals 53% today. Pt states is bringing in carnation instant breakfast which she prefers over Ensure compact. I encouraged intake of meals and her supplement from home to help with weight gain. We will continue to follow every five days to monitor for adequate intake.
--- NOTE | 2020-01-10 16:52 | PM.PNNEP ---
Progress Note: A&P Assessment and Plan (1) Hyponatremia: Code(s): E87.1 - Hypo-osmolality and hyponatremia Status: Acute Assessment and Plan: sodium continues to improve (still fluctuates at times) suspect multifactorial etiology: - mild volume depletion (low urine sodium) - possible SIADH -- COPD -- severe pneumonia -- this may explain ongoing fluctuations in sodium level -- significant smoking history TSH okay follow-up on pending tests follow trend of sodium (2) Pneumonia involving right lung: Qualifiers: Pneumonia type: due to unspecified organism Lung location: unspecified part of lung Qualified Code(s): J18.9 - Pneumonia, unspecified organism Code(s): J18.9 - Pneumonia, unspecified organism Status: Acute Assessment and Plan: on antibiotics continue supportive care Will continue to follow intermittently with regard to her sodium level. Subjective Date/time seen: 01/10/20 16:52 Chart reviewed since last seen -- on/off fevers associated productive cough with thick brown sputum; remains on aggressive therapy (antibiotics, supplemental O2...etc) but CXR clinically looks worse; modified barium swallow results noted. Exam Narrative: Exam Narrative: General: WD/WN female in NAD Heart: normal S1 and S2; no rub Lungs: coarse breath sounds Abdomen: soft, nontender, nondistended, positive bowel sounds Extremities: no cyanosis or clubbing; no edema Skin: warm and intact Objective Data Vital Signs Vital Signs: Vital Signs Temp Pulse Resp BP Pulse Ox 01/10/20 15:10 120 H 20 01/10/20 15:04 116 H 20 01/10/20 14:00 36.8 C 138 H 22 H 166/66 H 93 01/10/20 11:11 133/55 L 01/10/20 11:09 135/61 01/10/20 11:08 138/61 01/10/20 08:28 115 H 20 01/10/20 08:18 117 H 20 93 01/10/20 08:16 117 H 20 01/10/20 08:00 118 H 01/10/20 06:00 37.6 C H 117 H 18 118/58 L 96 01/10/20 04:00 126 H 01/10/20 03:41 104 H 20 01/10/20 03:34 99 20 01/10/20 00:00 109 H 01/09/20 22:10 92 20 01/09/20 22:00 36.8 C 120 H 18 110/71 95 01/09/20 21:59 36.9 C 84 18 119/54 L 96 01/09/20 20:00 36.9 C 120 H 18 113/49 L 96 01/09/20 19:53 38.1 C H 01/09/20 18:36 38.0 C H Intake/Output Intake/Output: Intake & Output 01/07/20 01/08/20 01/09/20 01/10/20 23:59 23:59 23:59 23:59 Intake Total 2689 2930 2920 1470 Output Total 1650 2400 2800 500 Balance 1039 530 120 970 Meds/Results Medications: Active Medications Generic Name Dose Route Start Last Admin Trade Name Freq PRN Reason Stop Dose Admin Acetaminophen 650 mg 01/08/20 21:37 01/09/20 18:36 Tylenol Tablet PO 650 mg Q6H PRN Administration Mild Pain (1-3) or Fever Budesonide/Formoterol Fumarate 2 puff 01/06/20 08:00 01/10/20 08:18 Symbicort 160-4.5 Mcg (*Sp) Inhaler INHALATION 2 puff Q12HRT SOTO Administration Buspirone HCl 2.5 mg/ 7.5 mg 01/06/20 21:00 01/10/20 08:35 Buspirone HCl 5 mg PO 7.5 mg Q12HR SOTO Administration Diltiazem HCl 30 mg 01/08/20 01:30 01/10/20 13:11 Cardizem Tab PO 30 mg Q6HR SOTO Administration Doxycycline Hyclate 100 mg 01/08/20 18:00 01/10/20 06:20 Vibramycin Tab PO 100 mg Q12H SOTO Administration Enoxaparin Sodium 40 mg 01/08/20 21:00 01/09/20 21:18 Lovenox SUB-Q 40 mg Q24H SOTO Administration Guaifenesin 600 mg 01/04/20 21:00 01/10/20 08:35 Mucinex 12 Hr Tab PO 600 mg Q12HR SOTO Administration Sodium Chloride 1,000 mls @ 60 mls/hr 01/04/20 11:05 01/10/20 13:12 Normal Saline Iv IV CONT 60 mls/hr .[id number] SOTO Infusion Ampicillin Sodium/Sulbactam Sodium 3 gm in 100 mls @ 200 mls/hr 01/05/20 23:00 01/10/20 13:31 Unasyn 3 Gm/Ns 100 Ml IVPB Infused Q6HR SOTO Infusion Vancomycin HCl 1,000 mg in 250 mls @ 250 mls/hr 01/10/20 14:00 01/10/20 14:42
--- NOTE | 2020-01-11 17:31 | P.DS_ITS ---
DS: Diagnosis Admitting Diagnosis Admitting Diagnosis: Sepsis, unspecified organism Discharge Diagnosis (1) Sepsis: Code(s): A41.9 - Sepsis, unspecified organism Status: Acute Assessment and Plan: * Present on admission and supported by tachycardia, leukocytosis, and elevated lactic acid level in the setting of pneumonia. * Lactic acid on arrival was 3.2, then went to 3.5 and then normalized. * At d/c the patient's vitals have improved with only tachycardia at this time. Continued leukocytosis.(14.7k) She remains afebrile, normal blood pressure, normal respiratory rate, normal oxygenation at 94% on 2 L. * Blood cultures no growth . Transferred to Pul[facility] Service at [facility] in [place] with developing necrotizing pneumonia with cavitation found the day of discharge on x-ray (2) Pneumonia involving right lung: Qualifiers: Lung location: unspecified part of lung Pneumonia type: due to unspecified organism Qualified Code(s): J18.9 - Pneumonia, unspecified organism Code(s): J18.9 - Pneumonia, unspecified organism Status: Acute Assessment and Plan: * She has been feeling unwell for approximately 1 month, and despite outpatient Levaquin her pneumonia has continued to progress. * Questionable right lower lobe mass, but difficult to tell given the consolidation. * She was initially started on IV Azithromycin and Ceftriaxone. * Dr. Mendoza [employer] Operator [employer], evaluated the patient and discontinued Azithromycin and Ceftriaxone and started IV Unasyn * now on Vancomycin, Unasyn and now doxycycline. At time of discharge * Urine antigens are negative too * Continue Nebulizers scheduled q.6 hours. * Mucinex and Cornet to help mobilize secretions.. Chest x-ray today the day of discharge revealed cavitary lesion in the right mid lung compatible with necrotizing pneumonia. We discussed case with Dr. Mendoza and contacted Dr. Phillips at [facility] in [place] and he agreed to take the patient in transfer. (3) Hyponatremia: Code(s): E87.1 - Hypo-osmolality and hyponatremia Status: Acute Assessment and Plan: * Hyponatremia was severe and was 119 on initial presentation, today sodium has improved at 132 day of discharge. * Etiology is not entirely clear, but likely multifactorial to include decreased oral intake, volume depletion, and possible SIADH from pulmonary disease and pneumonia. * Nephrology was involved and has placed the patient on a fluid restriction at 1500 cc and on IV fluid hydration. * TSH was normal. * Urine Sodium was <5 showing severe dehydration and FENa was 0%. favoring dehydration (4) Sinus tachycardia: Code(s): R00.0 - Tachycardia, unspecified Status: Acute Assessment and Plan: * She does have good reason this or why she could be tachycardic due to pneumonia, acute respiratory failure, sepsis, as cause of hypoxia * She denies any chest pain, palpitations, lightheadedness or dizziness today and hypoxia and SOB is improving. * Telemetry shows sinus tachycardia but improved . Few PACs were noted. But no other acute abnormality. * EKG sinus tach only. * Placed on low-dose diltiazem 30 Q 6 which did slow the pulse slightly. (5) COPD with emphysema: Qualifiers: Emphysema type: unspecified Qualified Code(s): J43.9 - Emphysema, unspecified Cod
--- NOTE | 2020-01-11 17:31 | PM.DS ---
DS: Diagnosis Admitting Diagnosis Admitting Diagnosis: Sepsis, unspecified organism Discharge Diagnosis (1) Sepsis: Code(s): A41.9 - Sepsis, unspecified organism Status: Acute Assessment and Plan: Present on admission and supported by tachycardia, leukocytosis, and elevated lactic acid level in the setting of pneumonia. Lactic acid on arrival was 3.2, then went to 3.5 and then normalized. At d/c the patient's vitals have improved with only tachycardia at this time. Continued leukocytosis.(14.7k) She remains afebrile, normal blood pressure, normal respiratory rate, normal oxygenation at 94% on 2 L. Blood cultures no growth . Transferred to [facility] [place] in [place] with developing necrotizing pneumonia with cavitation found the day of discharge on x-ray (2) Pneumonia involving right lung: Qualifiers: Lung location: unspecified part of lung Pneumonia type: due to unspecified organism Qualified Code(s): J18.9 - Pneumonia, unspecified organism Code(s): J18.9 - Pneumonia, unspecified organism Status: Acute Assessment and Plan: She has been feeling unwell for approximately 1 month, and despite outpatient Levaquin her pneumonia has continued to progress. Questionable right lower lobe mass, but difficult to tell given the consolidation. She was initially started on IV Azithromycin and Ceftriaxone. Dr. Mendoza Skein Bander, evaluated the patient and discontinued Azithromycin and Ceftriaxone and started IV Unasyn now on Vancomycin, Unasyn and now doxycycline. At time of discharge Urine antigens are negative too Continue Nebulizers scheduled q.6 hours. Mucinex and Cornet to help mobilize secretions.. Chest x-ray today the day of discharge revealed cavitary lesion in the right mid lung compatible with necrotizing pneumonia. We discussed case with Dr. Mendoza and contacted Dr. Phillips at [facility] in [place] and he agreed to take the patient in transfer. (3) Hyponatremia: Code(s): E87.1 - Hypo-osmolality and hyponatremia Status: Acute Assessment and Plan: Hyponatremia was severe and was 119 on initial presentation, today sodium has improved at 132 day of discharge. Etiology is not entirely clear, but likely multifactorial to include decreased oral intake, volume depletion, and possible SIADH from pulmonary disease and pneumonia. Nephrology was involved and has placed the patient on a fluid restriction at 1500 cc and on IV fluid hydration. TSH was normal. Urine Sodium was <5 showing severe dehydration and FENa was 0%. favoring dehydration (4) Sinus tachycardia: Code(s): R00.0 - Tachycardia, unspecified Status: Acute Assessment and Plan: She does have good reason this or why she could be tachycardic due to pneumonia, acute respiratory failure, sepsis, as cause of hypoxia She denies any chest pain, palpitations, lightheadedness or dizziness today and hypoxia and SOB is improving. Telemetry shows sinus tachycardia but improved . Few PACs were noted. But no other acute abnormality. EKG sinus tach only. Placed on low-dose diltiazem 30 Q 6 which did slow the pulse slightly. (5) COPD with emphysema: Qualifiers: Emphysema type: unspecified Qualified Code(s): J43.9 - Emphysema, unspecified Code(s): J43.9 - Emphysema, unspecified Status: Acute Assessment and Plan: No evidence of acute exacerbation at this time. At this point she is not using any inhalers at home. Updraft treatments while here (6) Obstructive sleep apnea on CPAP: Code(s): G47.33 - Obstructive sleep apnea (adult) (pediatric); Z99.89 - Dependence
== END 2020-01-10 18:02 | disposition short-term general hospital (02) | DRG 871 ==
LOC: ANHED 11:09 → ANH2MED 11:12
PROVIDERS: Internal Medicine Nephrology; Physician Assistant; Admitting Provider Family Medicine; Emergency Provider Emergency Medicine; PCP Internal Medicine; Visit Provider Internal Medicine
DX: A41.9 Sepsis, unspecified organism (principal); J96.01 Acute respiratory failure with hypoxia; J85.0 Gangrene and necrosis of lung; E87.1 Hypo-osmolality and hyponatremia; E46 Unspecified protein-calorie malnutrition; R64 Cachexia; Z68.1 Body mass index [BMI] 19.9 or less, adult; B37.0 Candidal stomatitis; F17.210 Nicotine dependence, cigarettes, uncomplicated; G47.33 Obstructive sleep apnea (adult) (pediatric); J43.9 Emphysema, unspecified; H40.9 Unspecified glaucoma; Z90.710 Acquired absence of both cervix and uterus; Z90.79 Acquired absence of other genital organ(s); Z90.722 Acquired absence of ovaries, bilateral; M19.90 Unspecified osteoarthritis, unspecified site; M81.0 Age-related osteoporosis without current pathological fracture; R00.0 Tachycardia, unspecified
CPT/HCPCS: 36415; 36569; 36600; 71045; 71046; 80048; 80053; 80069; 80202; 81001; 82533; 82570; 82805; 83605; 83735; 83930; 83935; 84100; 84132; 84155; 84165; 84295; 84300; 84443; 84484; 85025; 85610; 85730; 86703; 87015; 87040; 87070; 87102; 87106; 87116; 87205; 87206; 87449; 87804; 87899; 92611; 93005; 94640; 94667; 94668; 96361; 96365; 96366; 97161; 97165; 99291; A9270; C1751; G0432; J0295; J0456; J0696; J1650; J3370; J3475; J3480; J7030; J7050; J7120

== ENCOUNTER 2021-02-05 09:31 | Outpatient (CLI) | payer BC, SELFPAY | END 2021-02-05 09:32 | disposition home or self-care (01) | LOC: ANHCOVIDVC 09:31 | PROVIDERS: PCP Physician Assistant | DX: Z23 Encounter for immunization (principal) | CPT/HCPCS: 0001A; 91300 ==

== ENCOUNTER 2021-02-26 09:28 | Outpatient (CLI) | payer BC, SELFPAY | END 2021-02-26 09:29 | disposition home or self-care (01) | LOC: ANHCOVIDVC 09:28 | PROVIDERS: PCP Physician Assistant | DX: Z23 Encounter for immunization (principal) | CPT/HCPCS: 0002A; 91300 ==

== ENCOUNTER → 2021-06-04 08:12 | Outpatient (CLI) | payer BC, SELFPAY ==
--- NOTE | ~2021-06-04 | XR_ITS ---
EXAMINATION: XR knee LT 3V EXAM DATE: 06/04/2021 08:55 INDICATION: M25.562 - Pain in left knee. Pt bumped knee on coffee table in early March, pt developed a bump on anterior knee that resolved until she later did some gardening, this bump has not resolved, n o surgery. TECHNIQUE: Three projections of the left knee. Comparison is made to prior examination from 5. FINDINGS: No evidence osteochondral defect or joint body in the left knee joint. There are no acute fractures or dislocations identified. There is no subcutaneous gas. Swelling anterior to the robles la, patellar tendon, expected location of the prepatellar bursa. There is no joint effusion. No bony productive changes. There are no radiopaque foreign bodies. IMPRESSION: Anterior swelling, could be prepatellar bursitis. No joint effusion. Reviewed, dictated and finalized at location B. IMPRESSION: Anterior swelling, could be prepatellar bursitis. No joint effusion .
== END ==
PROVIDERS: PCP Internal Medicine; Visit Provider Physician Assistant
DX: M25.562 Pain in left knee (principal); R22.42 Localized swelling, mass and lump, left lower limb
CPT/HCPCS: 73562

== ENCOUNTER 2021-06-19 07:24 | Emergency (ER) | payer BC, SELFPAY ==
[2021-06-19 07:25] VITALS: BP 176/87; PULSE 100; RESP 20; TEMP 37.2; O2SAT 98
--- NOTE | 2021-06-19 07:42 | ED.SKABFB ---
HPI - Skin/Abscess/Foreign Bdy General Chief complaint: Skin/Abscess/Foreign Body Stated complaint: poison cecil r eye Time Seen by Provider: 06/19/21 07:27 History of Present Illness HPI narrative: Rahs to the right forehead for about the past week. Rash is painful. Associated with right eye pain. No vision changes. No fever. She thought it may be poison cecil, no known exposure. She saw the eye doctor 2 days ago and they said there was nothing wrong with her eye. Related Data Home Medications Medication Instructions Recorded Confirmed travoprost [Travatan Z] 1 drp OPHTHALMIC (EYE) HS 12/16/19 04/14/21 Allergies Allergy/AdvReac Type Severity Reaction Status Date / Time Sulfa (Sulfonamide Allergy Intermediate Rash Verified 06/19/21 07:34 Antibiotics) Review of Systems Review of Systems: All systems reviewed & are unremarkable except as noted in HPI and below Constitutional: Constitutional: Denies fever(s) Eyes: Eyes: Denies change in vision ENT: Denies dizziness Comments: right ear pain Cardiovascular: Cardiovascular: Denies chest pain Respiratory: Respiratory: Denies dyspnea Gastrointestinal: Gastrointestinal: Reports no additional gastrointestinal complaints Genitourinary: Genitourinary: Reports no additional female genitourinary complaints Musculoskeletal: Musculoskeletal: Denies back pain Neurologic: Denies headache(s), Denies numbness and Denies weakness PMFSH Past Medical History Medical History COPD with emphysema PFTs in July 2017 demonstrated mild obstructive ventilatory defect, particularly in small airways with no acute bronchodilator response and moderately decreased DLCO. Glaucoma Obstructive sleep apnea on CPAP Sleep study in June 2017 demonstrated severe obstructive sleep apnea. Osteoarthritis Osteoporosis Tobacco abuse Surgical History Surgical History History of 3 sections History of total hysterectomy with bilateral salpingo-oophorectomy (BSO) Family History Family History Father Patient's father is in good health Diabetes mellitus Sibling Patient's brother is in good health Mother Cerebrovascular accident Family history of arthritis Other Family history of rheumatoid arthritis Social History Social History Social History: The patient lives in [place] with her . She designates her , Ricky, as her surrogate decision maker and she wishes to be a full code. She does not work, but helps take care of her grandchildren, ages 3 and 8, on weekday mornings. She smoked up to 2 packs of cigarettes per day for > 35 years. She tells me she quit smoking a few weeks ago, however has been sneaking cigarettes here and there. She drinks alcohol socially and in moderation. She denies illicit drug use. Smoking status: Current every day smoker Second hand tobacco smoke exposure: No Alcohol intake: never Substance use: never Gender identity (if verbalized by the patient): Female Spiritual care concerns: No Exam Const: General: healthy appearing, no acute distress and alert Orientation/consciousness: patient oriented x3 HENMT: Ears: TM's normal bilaterally and EAC's normal Throat: posterior oropharynx normal Other: Dermatomal rash in right t1 distribution. Eyes: Pupils: Equal, round and reactive pupils present Neck: Neck: normal visual inspection and no lymphadenopathy Neuro: General: patient oriented x3, moves all extremities, no focal motor deficits and CN's II-XI intact bilaterally Speech: normal speech Extrem: General: normal to inspection Course Vital Signs Vital signs: Vital Signs Temperature 37.2 C 06/19/21 07:25 Pulse Rate 100 06/19/21 07:25 Respiratory Rate 20
[2021-06-19] MEDS: valACYclovir HCL 500 MG TABLET 1000 MG PO (08:00)
[2021-06-19] MEDS: predniSONE 20 MG TABLET 60 MG PO (08:00)
[2021-06-19 09:53] VITALS: BP 176/76; PULSE 86; RESP 16; O2SAT 97
--- NOTE | 2021-06-19 10:05 | PC.NURSE ---
informed that [facility] were [facility]. pt waiting until issue corrected.
== END 2021-06-19 10:26 | disposition home or self-care (01) ==
PROVIDERS: Emergency Provider Emergency Medicine; PCP Internal Medicine
DX: B02.9 Zoster without complications (principal); J43.9 Emphysema, unspecified; H40.9 Unspecified glaucoma; G47.33 Obstructive sleep apnea (adult) (pediatric); M19.90 Unspecified osteoarthritis, unspecified site; M81.0 Age-related osteoporosis without current pathological fracture; F17.210 Nicotine dependence, cigarettes, uncomplicated
CPT/HCPCS: 99283; A9270; J7512

== ENCOUNTER 2022-08-31 09:52 | Emergency (ER) | payer BC, SELFPAY ==
--- NOTE | ~2022-08-31 | US_ITS ---
US renal BI 08/31/2022 11:29 Procedure: Realtime transabdominal ultrasound of the kidneys and bladder. Indication: Cystic lesion seen on CT. Comparison: 10/07/2016 Findings: Renal echotexture is normal bilaterally without hydronephrosis, contour deforming mass. The re are multiple echogenic foci in the kidneys, consistent with bilateral nephrolithiasis. No hydronep hrosis. No renal mass is identified. The right kidney measures 10.9 cm and left kidney measures 11.7 cm. Bladder within normal limits. Impression: 1: Nonobstructing bilateral nephrolithiasis. 2: No renal mass identified. Recommend correlation with contrast-enhanced CT abdomen. Reviewed, dictated and finalized at location A. Impression: 1: Nonobstructing bilateral nephrolithiasis. 2: No renal mass identified. Recommend correlation with contrast-enhanced CT ab giovanna.
--- NOTE | ~2022-08-31 | CT_ITS ---
EXAMINATION: CT abdomen pelvis wo con DATE: 08/31/2022 10:20 INDICATION: Right flank pain. Hematuria. History of UTI and stones. TECHNIQUE: Computed tomography (CT) of the abdomen and pelvis was performed without intravenous contr ast. The dose-length product was 147.71 mGy-cm. Automated exposure control and iterative reconstructi on technique were employed. COMPARISON: CT dated 05/04/2012 FINDINGS: There are interstitial changes in the lung bases with areas of groundglass nodularity in th e right lower lobe, most likely infectious/inflammatory. Heart size normal. There is pectus carinatum . The liver, spleen, pancreas, adrenal glands are unremarkable. There are nonobstructing bilateral ayanna l stones. There is a 3 mm right UVJ stone. No significant hydronephrosis. There is a subtle hypodense lesion of the right kidney measuring approximately 8 mm. Recommend correlation with ultrasound. Ther e is atherosclerosis of the aorta without aneurysm. No free air or free fluid. No lymphadenopathy. No acute osseous abnormality. IMPRESSION: 1. Right UVJ stone measuring 3 mm. No significant hydronephrosis. 2: Nonobstructing bilateral nephrolithiasis. 3: Small hypodense right renal lesion measuring 8 mm. Correlation with ultrasound recommended. Reviewed, dictated and finalized at location A. IMPRESSION: 1. Right UVJ stone measuring 3 mm. No significant hydronephrosis. 2: Nonobstructing bilateral nephrolithiasis. 3: Small hypodense right renal lesion measuring 8 mm. Correlation with ultrasou nd recommended.
[2022-08-31 10:03] VITALS: BP 175/93; PULSE 95; RESP 16; TEMP 37; O2SAT 97
--- NOTE | 2022-08-31 10:09 | ED.ABDPAIN ---
HPI - Abdominal Pain General Chief Complaint: Urogenital-Female Stated Complaint: hematuria Time Seen by Provider: 08/31/22 10:02 History of Present Illness HPI narrative: Patient is a 62-year-old female with history of hypertension and kidney stones here for evaluation of right-sided flank/groin pain in addition to hematuria. Patient states that she has been experiencing issues with urinary retention yesterday, which is since resolved, but today when she voided she noted that her urine was tinted red. She denies any dysuria, urgency or frequency. She does note that she had some right-sided flank pain that has since wrapped around to the front of her groin, has been intermittent in nature and is not present currently. She has not taken any medication for her pain. Denies any fevers or chills, nausea or vomiting, weight changes, chest pain. Related Data Home Medications Medication Instructions Recorded Confirmed travoprost 0.004 % eye drops 1 drp ophthalmic (eye) HS 12/16/19 04/30/22 (Travatan Z) brimonidine 0.1 % eye drops drp 08/31/22 (Alphagan P) Allergies Allergy/AdvReac Type Severity Reaction Status Date / Time Sulfa (Sulfonamide Allergy Intermediate Rash Verified 08/31/22 10:09 Antibiotics) Review of Systems Review of Systems: Gen.: Denies fevers or chills Eyes: Denies eye pain or visual change ENT: Denies congestion Respiratory: Denies shortness of breath or cough CV: Denies chest pain or palpitations GI: Denies abdominal pain nausea, emesis or diarrhea reports hematuria. Denies burning, urgency, frequency Musculoskeletal: Reports back pain. Neuro: Denies numbness, tingling, weakness or focal weakness Skin: Denies rash Except as documented, all other systems reviewed and negative [facility] Past Medical History Medical History (Updated 08/31/22 @ 12:02 by Helen Reagan PA-C) COPD with emphysema PFTs in July 2017 demonstrated mild obstructive ventilatory defect, particularly in small airways with no acute bronchodilator response and moderately decreased DLCO. Glaucoma Obstructive sleep apnea on CPAP Sleep study in June 2017 demonstrated severe obstructive sleep apnea. Osteoarthritis Osteoporosis Tobacco abuse Surgical History Surgical History History of 3 sections History of total hysterectomy with bilateral salpingo-oophorectomy (BSO) Family History Family History Father Patient's father is in good health Diabetes mellitus Sibling Patient's brother is in good health Mother Cerebrovascular accident Family history of arthritis Other Family history of rheumatoid arthritis Social History Social History Social History: The patient lives in [place] with her . She designates her , Ricky, as her surrogate decision maker and she wishes to be a full code. She does not work, but helps take care of her grandchildren, ages 3 and 8, on weekday mornings. She smoked up to 2 packs of cigarettes per day for > 35 years. She tells me she quit smoking a few weeks ago, however has been sneaking cigarettes here and there. She drinks alcohol socially and in moderation. She denies illicit drug use. Smoking status: Current every day smoker Second hand tobacco smoke exposure: No Alcohol intake: never Substance use: never Gender identity (if verbalized by the patient): Female Spiritual care concerns: No Exam Narrative: APPEARANCE: Well appearing, no pain in distress, well-nourished. Head: Normocephalic and atraumatic. EYES: PERRLA/EOMI, conjunctivae clear NOSE: No nasal drainage EARS: External ear normal in appearance THROAT: Oropharynx is clear. Mucous membranes are moist. NECK: Supple. No adenopathy, no masses. RESPIRATORY: Airway patent, respirati
[2022-08-31 10:22] LABS: Basophils Absolute Auto 0.1 K/mm3 (0.0-0.1); Basophils Percent Auto 0.9 % (0.2-1.2); Eosinophils Absolute Auto 0.1 K/mm3 (0-0.3); Eosinophils Percent Auto 1.2 % (0-4.4); Hemoglobin 14.6 g/dL (12.0-15.0); Immature Granulocyte Absolute 0.02 K/mm3 (0.00-0.031); Immature Granulocyte Percent A 0.2 % (0-0.5); Lymphocytes Absolute Auto 1.17 K/mm3 (0.9-3.2); Lymphocytes Percent Auto 14.5 % (18.3-44.2); Mean Corpuscular HGB Conc 33.2 g/dl (32-36); Mean Corpuscular Hemoglobin 31.3 pg (26-34); Mean Corpuscular Volume 94.2 fl (80-100); Mean Platelet Volume 8.9 fl (7.4-10.4); Monocytes Absolute Auto 0.4 K/mm3 (0.1-0.6); Monocytes Percent Auto 4.8 % (2.6-8.5); Neutrophils Absolute Auto 6.3 K/mm3 (1.3-6.7); Neutrophils Percent Auto 78.4 % (45.5-73.1); Platelet Count Result 251 k/mm3 (150-375); Red Blood Count 4.67 M/mm3 (4.2-5.4); Red Cell Distribution Width 13.3 % (11.5-14.5); White Blood Count 8.1 K/mm3 (4.5-10.0)
[2022-08-31 10:36] LABS: Alanine Aminotransferase 17 U/L (6-35); Albumin Level 4.5 g/dL (3.5-5.1); Alkaline Phosphatase 61 U/L (38-126); Anion Gap 7 mmol/L (8-16); Aspartate Amino Transferase 23 U/L (14-36); Bilirubin,Total 0.4 mg/dL (0.2-1.3); Blood Urea Nitrogen 17 mg/dL (7-17); Calcium 9.4 mg/dL (8.4-10.2); Carbon Dioxide 32 mmol/L (22-30); Chloride 100 mmol/L (98-107); Estimated CRCL calculation 59 ml/min; Estimated Glomerular Filt Rate > 60; Glucose 142 mg/dL (65-110); Potassium 4.1 mmol/L (3.4-5.0); Sodium 139 mmol/L (137-145)
[2022-08-31 10:56] LABS: Appearance Urine Clear (Clear); Bilirubin Urine Negative (Negative); Blood Urine 2+ (Negative); Color Urine Yellow (Yellow); Glucose Urine UA Negative (Negative); Ketones Urine Negative (Negative); Leukocyte Esterase Ur Negative LEU/UL (Negative); Nitrate Urine Negative (Negative); Protein Urine 1+ mg/dL (Negative); Urobilinogen Urine 0.2 mg/dL (<2.0)
[2022-08-31 11:09] LABS: Mucus Urine Rare /lpf; RBC Urine >75 /hpf (0-2); Squamous Epithelial Cell Urine Rare /hpf (Few)
[2022-08-31 11:10] LABS: Add Urine Microscopic? YES
== END 2022-08-31 12:19 | disposition home or self-care (01) ==
PROVIDERS: Physician Assistant; Emergency Provider Emergency Medicine; PCP Physician Assistant
DX: N20.2 Calculus of kidney with calculus of ureter (principal); J43.9 Emphysema, unspecified; G47.33 Obstructive sleep apnea (adult) (pediatric); M81.0 Age-related osteoporosis without current pathological fracture; H40.9 Unspecified glaucoma; F17.210 Nicotine dependence, cigarettes, uncomplicated
CPT/HCPCS: 36415; 74176; 76775; 80053; 81001; 85025; 87086; 99284

== ENCOUNTER 2024-04-05 09:44 | Outpatient (CLI) | payer BC, SELFPAY ==
--- NOTE | ~2024-04-05 | XR_ITS ---
AP view of the pelvis and AP and lateral views of the right hip Clinical history: Pain Findings: No acute fracture or dislocation is seen. Osseous alignment is anatomic. Bilateral hip and SI joint spaces are preserved. Soft tissues are unremarkable. Impression: No significant abnormality is seen. Reviewed, dictated and finalized at [facility]. Impression: No significant abnormality is seen.
== END 2024-04-05 09:45 | disposition home or self-care (01) ==
LOC: ANHIMG 09:45
PROVIDERS: PCP Physician Assistant; Visit Provider Physician Assistant
DX: M25.551 Pain in right hip (principal)
CPT/HCPCS: 73502

== ENCOUNTER 2025-10-21 11:08 | Outpatient (CLI) | payer BC, SELFPAY ==
--- NOTE | ~2025-10-21 | US_ITS ---
Clinical History: R09.89 - Other specified symptoms and signs involving the... Examination: US carotid duplex BI Comparison: None Technique: Grayscale, color, duplex/spectral Doppler sonography carotid and vertebral arteries. Distal CCA and Peak ICA systolic velocities provided. Society of Radiologists in Ultrasound (SRU) consensus criteria utilized, indirectly assessing stenosis by velocities. Findings: Mild scattered plaque Right side: CCA - 86 cm/sec. ICA - 97 cm/sec. ICA/CCA - 1.1 Left Side: CCA - 115 cm/sec. ICA - 129 cm/sec. ICA/CCA - 1.1 Normal antegrade flow measured bilateral vertebral arteries. IMPRESSION: 1. Velocity consistent with 50-69% stenosis left ICA. 2. No hemodynamically significant ICA stenosis right side (i.e., if any stenosis, less than 50%). 3. Normal bilateral antegrade vertebral artery flow. Stenosis measured by Society of Radiologists in Ultrasound (SRU) criteria. Reviewed, dictated and finalized at location R. [employer] WORK[employer] IMPRESSION: 1. Velocity consistent with 50-69% stenosis left ICA. 2. No hemodynamically significant ICA stenosis right side (i.e., if any stenos is, less than 50%). 3. Normal bilateral antegrade vertebral artery flow. Stenosis measured by Society of Radiologists in Ultrasound (SRU) criteria.
== END 2025-10-21 11:09 | disposition home or self-care (01) ==
LOC: MICIMG 11:09
PROVIDERS: PCP Nurse Practitioner; Visit Provider Nurse Practitioner
DX: R09.89 Other specified symptoms and signs involving the circulatory and respiratory systems (principal)
CPT/HCPCS: 93880